=== PATIENT | female | born 1990 | race Caucasian/White ===

== ENCOUNTER 2021-01-30 18:05 | Emergency (ER) | payer SELFPAY ==
[~2021-01-30] VITALS: Ht 149.9 cm; Wt 94.1 kg
[2021-01-30] MEDS ORDERED: NEXP1IMP SC (18:19)
[2021-01-30 21:49] VITALS: BP 156/96
== END 2021-01-30 22:49 | disposition left against medical advice (07) ==
LOC: M ED 18:05
DX: Z53.21 Procedure and treatment not carried out due to patient leaving prior to being seen by health care provider (principal)

== ENCOUNTER 2021-02-14 14:03 | Emergency (ER) | payer OTHER, SELFPAY ==
[~2021-02-14] VITALS: Ht 149.9 cm; Wt 98.1 kg
[~2021-02-14 14:03] MED LIST: NEXP1IMP SC
[2021-02-14] MEDS ORDERED: nebulizer (14:19)
[2021-02-14] MEDS ORDERED: PROAAER10 INH (14:19)
[2021-02-14] MEDS ORDERED: BUDE10.7 IH (14:19)
--- NOTE | 2021-02-14 15:11 | REP ---
INDICATION: DYSPNEA/COUGH. COMPARISON: None. TECHNIQUE: Portable FINDINGS: The technique utilized in obtaining the radiograph has magnified the cardiac silhouette and accentuated the interstitial markings. The superior mediastinal structures are midline. The cardiac silhouette is unremarkable in size, shape, and position. The diaphragmatic surfaces of the lungs are regular, and the costophrenic angles are clear. The pulmonary chino are clear. The imaged osseous structures are intact. IMPRESSION: There is no acute cardiopulmonary disease. <Electronically signed by Aris Peace > 02/14/21 [id number]
[2021-02-14 15:22] LABS: BASO % 0.3 % (0.0-1.0); EOS % 0.3 % (0.0-3.0); HEMOGLOBIN 11.9 g/dl (12.0-15.5); LYMPH # 2.2 10^3/uL (1.5-5.0); LYMPH % 17.3 % (24.0-44.0); MEAN CORPUSCULAR HEMOGLOBIN 25.4 pg (27.0-33.0); MEAN CORPUSCULAR HGB CONC 31.3 g/dl (32.0-36.5); MONO # 1.1 10^3/uL (0.0-0.8); MONO % 8.5 % (2.0-8.0); NEUTROPHILS # 9.1 10^3/uL (1.5-8.5); NEUTROPHILS % 73.1 % (36.0-66.0); PLATELET COUNT, AUTOMATED 315 10^3/uL (150-450); RED BLOOD COUNT 4.69 10^6/uL (4.00-5.40); WHITE BLOOD COUNT 12.5 10^3/uL (4.0-10.0)
[2021-02-14 15:47] LABS: ALBUMIN 3.3 GM/DL (3.2-5.2); ALT/SGPT 19 U/L (12-78); BILIRUBIN,DIRECT < 0.1 MG/DL (0.0-0.2); BILIRUBIN,TOTAL 0.2 MG/DL (0.2-1.0); BLOOD UREA NITROGEN 7 MG/DL (7-18); CALCIUM LEVEL 8.9 MG/DL (8.5-10.1); CARBON DIOXIDE LEVEL 29 MEQ/L (21-32); CHLORIDE LEVEL 107 MEQ/L (98-107); CK-MB VALUE MASS < 1.0 NG/ML (<3.6); CPK CREATINE PHOSPHOKINASE 65 U/L (26-192); CREATININE FOR GFR 0.68 MG/DL (0.55-1.30); GLOMERULAR FILTRATION RATE > 60.0 (>60); GLUCOSE, FASTING 84 MG/DL (70-100); MB/CK RELATIVE INDEX 1.54 (< OR =4); POTASSIUM SERUM 3.8 MEQ/L (3.5-5.1); SODIUM LEVEL 140 MEQ/L (136-145); TOTAL PROTEIN 7.1 GM/DL (6.4-8.2); TROPONIN I < 0.02 NG/ML (< 0.10)
[2021-02-14] MEDS ORDERED: COMBIVENT RESPIMAT 100-20MCG INHALER 4GM INH ONE (15:50)
[2021-02-14] MEDS ORDERED: methylPREDNISolone 125MG 2ML VIAL IV ONE (15:50)
[2021-02-14] MEDS ORDERED: predniSONE 20 MG TAB PO ONE (17:20)
[2021-02-14 17:45] VITALS: BP 128/66
[2021-02-14] MEDS ORDERED: AZIT-12 PO (18:04)
[2021-02-14] MEDS ORDERED: PRED20TA PO (18:05)
--- NOTE | 2021-02-14 20:33 | ECGEPIP ---
[facility] - ED Test Date: 2021-02-14 Pat Name: ZHEN CASTLE Department: Room: - Gender: Female Ergonomic Specialist: sara : 1990 Requested By: AUTUMN Rogel Order Number: [id number] Reading MD: Chrissy Smallwood Measurements Intervals Gleason Rate: 100 P: 29 CA: 132 QRS: -26 QRSD: 78 T: 24 QT: 340 QTc: 438 Interpretive Statements Normal sinus rhythm Minimal voltage criteria for LVH, may be normal variant ( R in aVL ) NSTTW abnormalities No prior Electronically Signed on 02-14-2021 20:32:47 EDT by Chrissy Smallwood
== END 2021-02-14 18:23 | disposition home or self-care (01) ==
LOC: M ED 14:03
DX: J45.901 Unspecified asthma with (acute) exacerbation (principal); R32 Unspecified urinary incontinence; F84.0 Autistic disorder; F17.200 Nicotine dependence, unspecified, uncomplicated; Z88.8 Allergy status to other drugs, medicaments and biological substances; Z79.899 Other long term (current) drug therapy

== ENCOUNTER 2021-02-24 16:48 | Inpatient (IN) | payer OTHER ==
[~2021-02-24] VITALS: Ht 147.3 cm; Wt 97.9 kg
[~2021-02-24 16:48] MED LIST changes: +AZIT-12 PO; +BUDE10.7 IH; +PRED20TA PO; +PROAAER10 INH; +nebulizer
[2021-02-24] MEDS ORDERED: methylPREDNISolone 125MG 2ML VIAL IV ONE (17:10)
[2021-02-24] MEDS ORDERED: COMBIVENT RESPIMAT 100-20MCG INHALER 4GM INH ONE (17:10)
[2021-02-24 17:37] LABS: ABG BASE EXCESS -0.3 (-2.0-2.0); ABG HCO3 22.5 MEQ/L (22.0-26.0); ABG O2 SATURATION 99.5 % (95.0-99.0); ABG PARTIAL PRESSURE CO2 31.2 mmHg (35.0-45.0); ABG PARTIAL PRESSURE O2 185.5 mmHg (75.0-100.0); ABG STANDARD HCO3 24.3 MEQ/L (22.0-26.0); ABG TOTAL CO2 23.5 MEQ/L (22.0-29.0); ABG pH (ARTERIAL) 7.476 UNITS (7.350-7.450)
[2021-02-24 17:43] LABS: BASO # 0.1 10^3/uL (0.0-0.2); BASO % 0.3 % (0.0-1.0); EOS # 0.1 10^3/uL (0.0-0.5); EOS % 0.6 % (0.0-3.0); HEMATOCRIT 37.3 % (36.0-47.0); HEMOGLOBIN 11.7 g/dl (12.0-15.5); LYMPH # 2.8 10^3/uL (1.5-5.0); LYMPH % 19.2 % (24.0-44.0); MEAN CORPUSCULAR HEMOGLOBIN 25.5 pg (27.0-33.0); MEAN CORPUSCULAR HGB CONC 31.4 g/dl (32.0-36.5); MEAN CORPUSCULAR VOLUME 81.4 fl (80.0-96.0); MONO # 1.1 10^3/uL (0.0-0.8); MONO % 7.4 % (2.0-8.0); NEUTROPHILS # 10.3 10^3/uL (1.5-8.5); NEUTROPHILS % 72.1 % (36.0-66.0); PLATELET COUNT, AUTOMATED 325 10^3/uL (150-450); RED BLOOD COUNT 4.58 10^6/uL (4.00-5.40); WHITE BLOOD COUNT 14.3 10^3/uL (4.0-10.0)
[2021-02-24 18:05] LABS: INR 0.92; PROTHROMBIN TIME 12.6 SECONDS (12.5-14.3)
[2021-02-24 18:06] LABS: PARTIAL THROMBOPLASTIN TIME 30.9 SECONDS (24.2-38.5)
[2021-02-24 18:15] LABS: ALBUMIN 3.2 GM/DL (3.2-5.2); ALT/SGPT 22 U/L (12-78); BILIRUBIN,DIRECT < 0.1 MG/DL (0.0-0.2); BILIRUBIN,TOTAL 0.2 MG/DL (0.2-1.0); BLOOD UREA NITROGEN 7 MG/DL (7-18); CALCIUM LEVEL 8.8 MG/DL (8.5-10.1); CARBON DIOXIDE LEVEL 27 MEQ/L (21-32); CHLORIDE LEVEL 107 MEQ/L (98-107); CK-MB VALUE MASS < 1.0 NG/ML (<3.6); CPK CREATINE PHOSPHOKINASE 82 U/L (26-192); CREATININE FOR GFR 0.76 MG/DL (0.55-1.30); GLOMERULAR FILTRATION RATE > 60.0 (>60); GLUCOSE, FASTING 78 MG/DL (70-100); MB/CK RELATIVE INDEX 1.22 (< OR =4); NT-PRO BNP 38 PG/ML (<125); POTASSIUM SERUM 3.7 MEQ/L (3.5-5.1); SODIUM LEVEL 141 MEQ/L (136-145); TOTAL PROTEIN 6.7 GM/DL (6.4-8.2); TROPONIN I < 0.02 NG/ML (< 0.10)
[2021-02-24] MEDS ORDERED: ISOVUE-370 76% 100ML VIAL As Ordered ONE (18:24)
[2021-02-24] MEDS ORDERED: IPRATROPIUM 0.5MG/ALBUTEROL 2.5MG INH SOL UD 3ML (DUONEB) NEB ONE ×2 (18:50→20:10)
[2021-02-24] MEDS ORDERED: GABA-282 PO (20:27)
[2021-02-24] MEDS ORDERED: PRAZ2CAP40 PO (20:27)
[2021-02-24] MEDS ORDERED: TRAZ-257 PO (20:27)
[2021-02-24] MEDS ORDERED: PRAZ2CAP PO (20:27)
[2021-02-24] MEDS ORDERED: RISP3TAB20 PO (20:27)
[2021-02-24] MEDS ORDERED: MAG SULF 1GM/100ML (MAG RUN) 1 GM in IV 1 EA IV ONE (20:55)
[2021-02-24] MEDS ORDERED: PRAZOSIN 1 MG CAP PO SCH (21:00)
[2021-02-24] MEDS ORDERED: traZODone 100 MG TAB PO SCH (21:00)
[2021-02-24] MEDS ORDERED: CEPACOL LOZENGE PO PRN (21:05)
[2021-02-24] MEDS ORDERED: ACETAMINOPHEN 650MG ER TAB (TYLENOL ARTHRITIS) PO PRN (21:05)
[2021-02-24] MEDS ORDERED: IBUPROFEN 600MG TAB PO PRN (21:05)
[2021-02-24] MEDS ORDERED: ALBUTEROL SULFATE 2.5 MG/0.5 ML INH NEB SOLN NEB PRN (21:25)
--- NOTE | 2021-02-24 21:27 | HPEPDOC ---
[facility] Medical History & Physical Date of Admission February 24, 2021 Date of Service: February 24, 2021 Attending Physician: BROOKE ROLLINS MD History and Physical CHIEF COMPLAINT: cough/hemoptysis HISTORY OF PRESENT ILLNESS: Kyra Garcia is a 30 year old female who presented to the ED with ongoing cough and shortness of breath. She reports presenting today due to new hemoptysis with streaks of red blood in the sputum and one blood clot, approximately 1 hour prior to reporting to the ED. She denies prior his tory of hemoptysis. She states she has been struggling with her asthma for the past 1 month. She was seen in the ED a couple of weeks ago and diagnosed with an asthma exacerbation. However, her symptoms have not improved since that visit. She recently moved to the area to live with her mother and has not yet established care with a PCP or business systems architect. She was seen by pulmonary back in [place] for her asthma and states she was hospitalized multiple times with pneumonia. She also notes severe allergies, especially to dust mites, and states she was told she might benefit from allergy shots but has not pursued that yet. Patient's mother is at bedside and provides some of the history. PAST MEDICAL HISTORY: Asthma Prior hospitalizations for pneumonia Allergies Fibromyalgia Class 3 obesity Psych disorder PAST SURGICAL HISTORY: Bladder surgery x2 SOCIAL HISTORY: Smokes 5 cigarettes per day and vapes tobacco as well. Uses marijuana tinctures No alcohol. No other illicit substances. FAMILY HISTORY: Noncontributory ALLERGIES: Please see below. REVIEW OF SYSTEMS: CONSTITUTIONAL: Denies fevers, chills, night sweats, fatigue, unexpected change in weight. HEENT: Denies change in vision, change in hearing. CARDIOVASCULAR: Denies palpitations, lightheadedness. RESPIRATORY: Per HPI GASTROINTESTINAL: Denies nausea, vomiting, abdominal pain, diarrhea, constipation, blood in stool. GENITOURINARY: Denies dysuria, urinary frequency, urinary urgency. SKIN: Denies rash, lesions. MUSCULOSKELETAL: Denies joint pain or muscle aches. NEUROLOGICAL: Denies headache, dizziness, weakness. PSYCHIATRIC: Denies change in mood. HOME MEDICATIONS: Please see below. PHYSICAL EXAMINATION: VITAL SIGNS: See below GENERAL: Alert, comfortable, in no acute distress HEENT: Normocephalic, atraumatic, sclera anicteric, moist mucous membranes NECK: Supple, trachea midline, no lymphadenopathy CARDIOVASCULAR: Tachycardic with regular rhythm, normal S1 and S2. No murmurs, rubs, or gallops RESPIRATORY: Diffuse expiratory wheezing noted. ABDOMEN: Obese, soft, nontender, nondistended, bowel sounds present. EXTREMITIES: No cyanosis or edema. Pulses 2+/4 in bilateral upper and lower extremities SKIN: [place], warm, dry NEUROLOGIC: Alert and oriented x3 to person, place and time. No focal deficits appreciated PSYCHIATRIC: Mood and affect appropriate LABORATORY DATA: See below. IMAGING: - CTA chest, report pending. MICROBIOLOGY: Please see below. ASSESSMENT: 30 year old female with PMHX of asthma, allergies, fibromyalgia, and psychiatric disorder 1 month intermittent cough and shortness of breath and 1 hour of hemoptysis, admitted for management of asthma exacerbation PLAN: # Acute exacerbation of asthma - continue home inhaler (substituted based on hospital formulary) - give one dose of IV magnesium - s/p IV solumedrol 125mg. continue oral prednisone 40 mg daily. - Duonebs q6h scheduled with prn albuterol nebs # SIRS criteria - 3/4 criteria with tachycardia, tachypnea, and elevated WBC. Likely 2/2 asthma exacerbation. - No evidence of current infection. f/u CTA report - check blood cultures and lactic acid level # Hemoptysis - small volume prior to arrival at ED. Monitor for further blood in sputum. - Hg just below normal range. trend H/H daily. # Fibromyalgia - pain control with ibuprofen and acetaminophen. # Psychiatric disorder - unsure of diagnosis - continue Risperdal, trazodone, gabapentin, prazosin #Class 3 obesity -complicates care DVT prophylaxis: sc lovenox Disposition: home after at least 2 midnight's stay Vital Signs Vital Signs Date Time Temp Pulse Resp B/P (MAP) Pulse Ox O2 Delivery O2 Flow Rate FiO2 02/24/21 21:03 103 96 02/24/21 21:00 16 141/77 (98) 02/24/21 16:49 98.0 Room Air Laboratory Data Labs 24H Laboratory Tests 2 02/24/21 17:08: Immature Granulocyte % (Auto) 0.4, Neutrophils (%) (Auto) 72.1H, Lymphocytes (%) (Auto) 19.2L, Monocytes (%) (Auto) 7.4, Eosinophils (%) (Auto) 0.6, Basophils (%) (Auto) 0.3, Neutrophils # (Auto) 10.3H, Lymphocytes # (Auto) 2.8, Monocytes # (Auto) 1.1H, Eosinophils # (Auto) 0.1, Basophils # (Auto) 0.1, Nucleated Red Blood Cells % (auto) 0.0, Prothrombin Time 12.6, Prothromb Time International Ratio 0.92, Activated Partial Thromboplast Time 30.9, Blood Gas Bicarbonate Andrews dard 24.3, Arterial Blood pH 7.476H, Arterial Blood Partial Pressure CO2 31.2L, Arterial Blood Partial Pressure O2 185.5H, Arterial Blood Total CO2 23.5, Arterial Blood HCO3 22.5, Arterial Blood Base Excess -0.3, Arterial Blood Oxygen Saturation 99.5H, Anion Gap 7L, Glomerular Filtration Rate > 60.0, Calcium Level 8.8, Total Bilirubin 0.2, Direct Bilirubin < 0.1, Aspartate Amino Transf (AST/SGOT) 8, Alanine Aminotransferase (ALT/SGPT) 22, Alkaline Phosphatase 78, Total Creatine Kinase 82, Creatine Kinase MB < 1.0, Creatine Kinase MB Relative Index 1.22, Troponin I < 0.02, VL-Kjc-Y-Type Natriuretic Peptide 38, Total Protein 6.7, Albumin 3.2, Albumin/Globulin Ratio 0.9L, Thyroid Stimulating Ho rmone (TSH) 1.150 CBC/BMP Laboratory Tests 02/24/21 17:08 Microbiology Microbiology 02/24/21 Respiratory Virus Panel (PCR) ([facility]) - Final, Complete Home Medications Scheduled Gabapentin (Gabapentin) 300 Mg Capsule, 300 MG PO TID Prazosin HCl (Prazosin HCl) 2 Mg Capsule, 4 MG PO QHS Prazosin Hcl (Prazosin HCl) 2 Mg Capsule, 2 MG PO QAM Risperidone (Risperdal) 3 Mg Tablet, 3 MG PO BID Trazodone HCl (Trazodone HCl) 100 Mg Tablet, 200 MG PO QHS Scheduled PRN Albuterol Sulfate (Proair Hfa) 8.5 Gm Hfa.aer.ad, 2 PUFF INH Q4-6HP PRN for wheezing Miscellaneous Medications Budesonide/Glycopyr/Formoterol (Breztri Aerosphere Inhaler) 160 Mcg-9 Mcg-4.8 Mcg/Actuation Hfa.aer.ad, 10.7 GM IH Etonogestrel (Nexplanon) 68 Mg Implant, 68 MG SC Allergies Coded Allergies: haloperidol (Verified Allergy, Unknown, 01/30/21) lorazepam (Verified Allergy, Unknown, 01/30/21) GME ATTESTATION GME ATTESTATION My faculty preceptor for this patient encounter was physically present during the encounter and was fully available. All aspects of the patient interview, examination, medical decision making process, and medical care plan development were reviewed and approved by the faculty preceptor. The faculty preceptor is aware and concurs with the plan as stated in the body of this note and will attest to such by his/her cosignature. ATTENDING NOTE time of service 855pm Ms. Garcia is a 30 yr old w Asthma, fibromyalgia and obesity who is admitted for acute Asthma. rest per 's H&P PADDY RG D.O. February 24, 2021 21:27 BROOKE ROLLINS MD February 25, 2021 02:54
[2021-02-24 22:34] VITALS: BP 118/73
[2021-02-24 22:47] VITALS: O2SAT 95
[2021-02-24] MEDS: GABAPENTIN 300 MG CAP PO SCH (22:53)
[2021-02-24] MEDS: risperiDONE 3 MG TAB PO SCH (22:54)
[2021-02-25 06:16] LABS: BASO % 0.1 % (0.0-1.0); HEMATOCRIT 37.2 % (36.0-47.0); HEMOGLOBIN 11.7 g/dl (12.0-15.5); LYMPH # 0.8 10^3/uL (1.5-5.0); LYMPH % 6.1 % (24.0-44.0); MEAN CORPUSCULAR HEMOGLOBIN 25.4 pg (27.0-33.0); MEAN CORPUSCULAR HGB CONC 31.5 g/dl (32.0-36.5); MEAN CORPUSCULAR VOLUME 80.7 fl (80.0-96.0); MONO # 0.1 10^3/uL (0.0-0.8); MONO % 0.7 % (2.0-8.0); NEUTROPHILS # 12.2 10^3/uL (1.5-8.5); NEUTROPHILS % 92.3 % (36.0-66.0); PLATELET COUNT, AUTOMATED 326 10^3/uL (150-450); RED BLOOD COUNT 4.61 10^6/uL (4.00-5.40); WHITE BLOOD COUNT 13.2 10^3/uL (4.0-10.0)
[2021-02-25 06:20] VITALS: BP 121/66; O2SAT 96
[2021-02-25 06:38] LABS: HEMOGLOBIN A1c 5.8 %
[2021-02-25 06:47] LABS: BLOOD UREA NITROGEN 8 MG/DL (7-18); CALCIUM LEVEL 9.3 MG/DL (8.5-10.1); CARBON DIOXIDE LEVEL 25 MEQ/L (21-32); CHLORIDE LEVEL 108 MEQ/L (98-107); CREATININE FOR GFR 0.59 MG/DL (0.55-1.30); GLOMERULAR FILTRATION RATE > 60.0 (>60); GLUCOSE, FASTING 184 MG/DL (70-100); MAGNESIUM LEVEL 2.7 MG/DL (1.8-2.4); POTASSIUM SERUM 4.6 MEQ/L (3.5-5.1); SODIUM LEVEL 139 MEQ/L (136-145)
--- NOTE | 2021-02-25 07:56 | ECGEPIP ---
[facility] - ED Test Date: 2021-02-24 Pat Name: ZHEN CASTLE Department: Room: - Gender: Female Furnace Attendant: JOE : 1990 Requested By: AUTUMN Rogel Order Number: [id number] Reading MD: Chrissy Smallwood Measurements Intervals Apollo Rate: 88 P: 39 WI: 134 QRS: -22 QRSD: 78 T: 17 QT: 352 QTc: 425 Interpretive Statements Normal sinus rhythm NSTTW abnormalities decreased rate 02/14/21 Electronically Signed on 02-25-2021 7:55:55 EDT by Chrissy Smallwood
[2021-02-25] MEDS ORDERED: SYMBICORT 160/4.5MCG INHALER 6GM INH SCH (08:00)
[2021-02-25] MEDS: IPRATROPIUM 0.5MG/ALBUTEROL 2.5MG INH SOL UD 3ML (DUONEB) NEB SCH ×2 (08:00→09:17)
[2021-02-25 08:54] VITALS: BP 121/66
[2021-02-25] MEDS: predniSONE 20 MG TAB PO SCH ×2 (08:54→09:00)
[2021-02-25] MEDS: risperiDONE 3 MG TAB PO SCH (08:54)
[2021-02-25] MEDS: GABAPENTIN 300 MG CAP PO SCH (08:54)
[2021-02-25] MEDS ORDERED: ENOXAPARIN 40MG/0.4ML SYRINGE (J1650 PER 10MG) SC SCH (09:00)
[2021-02-25] MEDS ORDERED: PRAZOSIN 1 MG CAP PO SCH (09:00)
[2021-02-25] MEDS ORDERED: IBUP-1022 PO (10:24)
[2021-02-25] MEDS ORDERED: PROAAER10 INH (10:24)
[2021-02-25] MEDS ORDERED: methylPREDNISolone 125MG 2ML VIAL IV ONE (10:30)
--- NOTE | 2021-02-25 15:52 | DS.PDOC ---
Discharge Summary General Date of Admission February 24, 2021 at 20:51 Date of Discharge 02/25/2021 Discharge Summary PRIMARY CARE PHYSICIAN: Has not established with primary care physician in this area, but she does have an appointment with a [facility] provider in April with whom she will establish as a new patient, whose name she cannot remember at this time. ATTENDING AT TIME OF DISCHARGE: Dr. Noah Bunn, DO DISCHARGE DIAGNOS(E)S: Acute exacerbation of asthma Meats sirs criteria Minimal amount of hemoptysis prior to admission Fibromyalgia Unknown psychiatric disorder Class III obesity HPI & HOSPITAL COURSE: The patient was admitted for acute exacerbation of asthma. She was given a dose of Solu-Medrol 125 mg in the ED, and is started on inhalers and nebulizers. The patient stabilized fairly quickly, and this morning she is breathing quite well. She did not require oxygen at all throughout the night. Her wheezing has essentially completely resolved. She is feeling significantly better this morning and appears stable and safe for discharge at this time. PHYSICAL EXAMINATION ON DISCHARGE: GENERAL: Awake, alert, oriented 3. She is in no acute distress. CARDIOVASCULAR EXAMINATION: Regular rate and rhythm, with no rubs, gallops, or murmur. RESPIRATORY EXAMINATION: Clear to auscultation bilaterally with no wheezes, rales, or rhonchi. ABDOMINAL EXAMINATION: Soft, nontender, nondistended. Bowel sounds present. EXTREMITIES: No clubbing or edema noted. 2+ pulses in the radial bilaterally. DISPOSITION: Home DISCHARGE INSTRUCTIONS: Recommend that she follow-up with her primary care physician at her previously scheduled appointment, if she is having any issues is recommended that she call and move that date up closer. Diet as tolerated. Activity as tolerated. If symptoms return, or if you experience worsening of your symptoms, please call your doctor or return to the emergency department. DISCHARGE MEDICATIONS: -She reports that she has no adverse reaction to prednisone, that it will put her into a "rage fit", therefore she will be given a dose of Solu-Medrol prior to discharge, as this does not seem to affect her. -She does need a refill on her albuterol inhaler, this will be sent in -She also is requesting some prescription strength ibuprofen, as this helps with the discomfort under her ribs from the prior coughing and wheezing, a short prescription for this has also been sent in. -Otherwise, she seems to have plenty of all of her other medications, and no changes were made in any of her other home medications Vital Signs/I&Os Vital Signs Date Time Temp Pulse Resp B/P (MAP) Pulse Ox O2 Delivery O2 Flow Rate FiO2 02/25/21 08:54 121/66 02/25/21 06:20 96 Room Air 02/25/21 06:20 97.3 74 18 I&O- Last 24 Hours up to 6 AM 02/25/21 06:00 Intake Total 600 ml Output Total 800 ml Balance -200 ml Laboratory Data Labs 24H Laboratory Tests 2 02/24/21 17:08: Immature Granulocyte % (Auto) 0.4, Neutrophils (%) (Auto) 72.1H, Lymphocytes (%) (Auto) 19.2L, Monocytes (%) (Auto) 7.4, Eosinophils (%) (Auto) 0.6, Basophils (%) (Auto) 0.3, Neutrophils # (Auto) 10.3H, Lymphocytes # (Auto) 2.8, Monocytes # (Auto) 1.1H, Eosinophils # (Auto) 0.1, Basophils # (Auto) 0.1, Nucleated Red Blood Cells % (auto) 0.0, Prothrombin Time 12.6, Prothromb Time International Ratio 0.92, Activated Partial Thromboplast Time 30.9, Blood Gas Bicarbonate Standard 24.3, Arterial Blood pH 7.476H, Arterial Blood Partial Pressure CO2 31.2L, Arterial Blood Partial Pressure O2 185.5H, Arterial Blood Total CO2 23.5, Arterial Blood HCO3 22.5, Arterial Blood Base Excess -0.3, Arterial Blood Oxygen Saturation 99.5H, Anion Gap 7L, Glomerular Filtration Rate > 60.0, Calcium Level 8.8, Total Bilirubin 0.2, Direct Bilirubin < 0.1, Aspartate Amino Transf (AST/SGOT) 8, Alanine Aminotransferase (ALT/SGPT) 22, Alkaline Phosphatase 78, Total Creatine Kinase 82, Creatine Kinase MB < 1.0, Creatine Kinase MB Relative Index 1.22, Troponin I < 0.02, IB-Awj-M-Type Natriuretic Peptide 38, Total Protein 6.7, Albumin 3.2, Albumin/Globulin Ratio 0.9L, Thyroid Stimulating Hormone (TSH) 1.150 02/24/21 21:29: Lactic Acid Level 1.7 02/25/21 05:52: Immature Granulocyte % (Auto) 0.8, Neutrophils (%) (Auto) 92.3H, Lymphocytes (%) (Auto) 6.1L, Monocytes (%) (Auto) 0.7L, Eosinophils (%) (Auto) 0.0, Basophils (%) (Auto) 0.1, Neutrophils # (Auto) 12.2H, Lymphocytes # (Auto) 0.8L, Monocytes # (Auto) 0.1, Eosinophils # (Auto) 0.0, Basophils # (Auto) 0.0, Nucleated Red Blood Cells % (auto) 0.0, Anion Gap 6L, Glomerular Filtration Rate > 60.0, Calcium Level 9.3, Estimated Mean Plasma Glucose 120H, Hemoglobin A1c 5.8, Magnesium Level 2.7H CBC/BMP Laboratory Tests 02/24/21 17:08 02/25/21 05:52 Microbiology Microbiology 02/24/21 Blood Culture, Received Pending 02/24/21 Respiratory Virus Panel (PCR) ([facility]) - Final, Complete Discharge Medications Scheduled Gabapentin (Gabapentin) 300 Mg Capsule, 300 MG PO TID, (Reported) Prazosin HCl (Prazosin HCl) 2 Mg Capsule, 4 MG PO QHS, (Reported) Prazosin Hcl (Prazosin HCl) 2 Mg Capsule, 2 MG PO QAM, (Reported) Risperidone (Risperdal) 3 Mg Tablet, 3 MG PO BID, (Reported) Trazodone HCl (Trazodone HCl) 100 Mg Tablet, 200 MG PO QHS, (Reported) Scheduled PRN Albuterol Sulfate (Proair Hfa) 8.5 Gm Hfa.aer.ad, 2 PUFF INH Q4-6HP PRN for wheezing Ibuprofen (Ibuprofen) 600 Mg Tablet, 600 MG PO Q12HP PRN for MODERATE PAIN (PS 5-7) Miscellaneous Medications Budesonide/Glycopyr/Formoterol (Breztri Aerosphere Inhaler) 160 Mcg-9 Mcg-4.8 Mcg/Actuation Hfa.aer.ad, 10.7 GM IH, (Reported) Etonogestrel (Nexplanon) 68 Mg Implant, 68 MG SC, (Reported) Allergies Coded Allergies: haloperidol (Verified Allergy, Unknown, 01/30/21) lorazepam (Verified Allergy, Unknown, 01/30/21) NOAH BUNN DO February 25, 2021 15:52
--- NOTE | 2021-02-26 09:13 | REP ---
INDICATION: SOB hemoptysis. COMPARISON: None. TECHNIQUE: CT angiogram chest performed following the intravenous administration of 100 cc of Isovue 370. Sagittal and coronal reconstruction images are performed. FINDINGS: Lungs: There are mild diffuse ground-glass opacities throughout both lungs. Mediastinum: No adenopathy. Pulmonary arteries: No evidence of pulmonary embolism. Marilyn: No adenopathy. Axilla: No adenopathy. Pleura: No effusion. Heart: Not enlarged. Thoracic aorta: No aneurysm or dissection. Upper abdominal structures: Unremarkable. Visualized osseous structures: Unremarkable. IMPRESSION: No CT evidence of pulmonary embolism. Mild diffuse scattered ground-glass opacities bilaterally are nonspecific. Differential diagnosis would include pulmonary edema or inflammatory/infectious process. Preliminary report provided by [facility] at the time of the exam. <Electronically signed by Real Rosenberg > 02/26/21 [id number]
== END 2021-02-25 12:25 | disposition home or self-care (01) | DRG 720 ==
LOC: M ED 16:48 → M ED INP 20:51 → ENRESERV 21:12 → M MS5PR 22:30
PROVIDERS: ADMIT Internal Medicine; ATTEND Internal Medicine
DX: A41.9 Sepsis, unspecified organism (principal); K92.0 Hematemesis; J45.901 Unspecified asthma with (acute) exacerbation; M79.7 Fibromyalgia; F29 Unspecified psychosis not due to a substance or known physiological condition; E66.9 Obesity, unspecified; Z79.899 Other long term (current) drug therapy; Z88.8 Allergy status to other drugs, medicaments and biological substances; F17.210 Nicotine dependence, cigarettes, uncomplicated

== ENCOUNTER → 2021-03-20 | Outpatient (REF) | payer MEDICAID ==
[~2021-03-20] MED LIST changes: +GABA-282 PO; +IBUP-1022 PO; +PRAZ2CAP PO; +PRAZ2CAP40 PO; +RISP3TAB20 PO; +TRAZ-257 PO
[2021-03-20 15:21] LABS: BASO % 0.4 % (0.0-1.0); EOS # 0.1 10^3/uL (0.0-0.5); EOS % 0.4 % (0.0-3.0); HEMATOCRIT 35.1 % (36.0-47.0); HEMOGLOBIN 10.9 g/dl (12.0-15.5); LYMPH # 2.3 10^3/uL (1.5-5.0); LYMPH % 20.6 % (24.0-44.0); MEAN CORPUSCULAR HEMOGLOBIN 25.3 pg (27.0-33.0); MEAN CORPUSCULAR HGB CONC 31.1 g/dl (32.0-36.5); MEAN CORPUSCULAR VOLUME 81.4 fl (80.0-96.0); MONO # 0.8 10^3/uL (0.0-0.8); MONO % 6.7 % (2.0-8.0); NEUTROPHILS % 71.5 % (36.0-66.0); PLATELET COUNT, AUTOMATED 372 10^3/uL (150-450); RED BLOOD COUNT 4.31 10^6/uL (4.00-5.40); WHITE BLOOD COUNT 11.1 10^3/uL (4.0-10.0)
[2021-03-20 16:00] LABS: ALBUMIN 3.1 GM/DL (3.2-5.2); ALT/SGPT 21 U/L (12-78); BILIRUBIN,TOTAL 0.1 MG/DL (0.2-1.0); BLOOD UREA NITROGEN 5 MG/DL (7-18); CALCIUM LEVEL 8.7 MG/DL (8.5-10.1); CARBON DIOXIDE LEVEL 25 MEQ/L (21-32); CHLORIDE LEVEL 108 MEQ/L (98-107); CREATININE FOR GFR 0.69 MG/DL (0.55-1.30); GLOMERULAR FILTRATION RATE > 60.0 (>60); GLUCOSE, FASTING 74 MG/DL (70-100); POTASSIUM SERUM 4.1 MEQ/L (3.5-5.1); SODIUM LEVEL 139 MEQ/L (136-145); THYROID STIMULATING HORMONE 0.967 uIU/ML (0.358-3.740); TOTAL PROTEIN 6.6 GM/DL (6.4-8.2)
[2021-03-20 16:02] LABS: TOTAL 25(OH) VITAMIN D 24.2 NG/ML (30.0-100.0)
[2021-03-20 16:12] LABS: VITAMIN B12 LEVEL 592 PG/ML (247-911)
== END ==
LOC: M SFHCPLAZ 12:20
PROVIDERS: ATTEND Family Medicine
DX: R53.83 Other fatigue (principal)

== ENCOUNTER → 2021-03-23 | Outpatient (REF) | payer MEDICAID ==
[2021-03-23 15:43] LABS: PERCENT SATURATION 8.7 % (13.2-45.0)
== END ==
LOC: M PLALAB 12:19
PROVIDERS: ATTEND Family Medicine
DX: D64.9 Anemia, unspecified (principal)

== ENCOUNTER → 2021-03-28 | Outpatient (CLI) | payer MEDICAID ==
--- NOTE | 2021-03-28 12:54 | REPPI ---
INDICATION: R05 COUGH. COMPARISON: Portable exam 02/14/2021 FINDINGS: The superior mediastinal structures are midline. The cardiac silhouette is unremarkable in size, shape, and position. The diaphragmatic surfaces of the lungs are regular, and the costophrenic angles are clear. The pulmonary chino are clear. The imaged osseous structures are intact. IMPRESSION: There is no acute cardiopulmonary disease. <Electronically signed by Aris Peace > 03/28/21 [id number]
--- NOTE | 2021-03-28 14:02 | REPPI ---
INDICATION: M54.5 ACUTE MIDLINE LOW BACK PAIN WITHOUT SCIATICA. TECHNIQUE: Multiple views of the lumbosacral spine. FINDINGS: Multiple views of the lumbosacral spine show no acute fracture, dislocation, or subluxation. The intervertebral disc spaces are symmetric and well maintained. There is no spondylolysis or spondylolisthesis. The pedicles are intact bilaterally and there is no destructive osseous lesion. There is a curvilinear metallic radiodensity superimposed over the left ilium the distal tip of which is in the left hemipelvic region. IMPRESSION: Essentially unremarkable lumbosacral spine series. There is some form of stimulator device arising from the posterior the etiology of which is uncertain. <Electronically signed by Aris Peace > 03/28/21 [id number]
== END ==
LOC: M PLAIMG 11:21
PROVIDERS: ATTEND Family Medicine
DX: R05 Cough (principal); M54.5 Low back pain

== ENCOUNTER → 2021-03-28 | Outpatient (REF) | payer MEDICAID ==
[2021-03-28 14:31] LABS: BASO % 0.4 % (0.0-1.0); EOS # 0.1 10^3/uL (0.0-0.5); EOS % 0.7 % (0.0-3.0); HEMATOCRIT 35.5 % (36.0-47.0); LYMPH % 17.8 % (24.0-44.0); MEAN CORPUSCULAR HEMOGLOBIN 25.4 pg (27.0-33.0); MONO # 0.8 10^3/uL (0.0-0.8); MONO % 7.4 % (2.0-8.0); NEUTROPHILS # 8.2 10^3/uL (1.5-8.5); NEUTROPHILS % 73.2 % (36.0-66.0); PLATELET COUNT, AUTOMATED 345 10^3/uL (150-450); RED BLOOD COUNT 4.33 10^6/uL (4.00-5.40); WHITE BLOOD COUNT 11.2 10^3/uL (4.0-10.0)
== END ==
LOC: M SFHCPLAZ 11:21
PROVIDERS: ATTEND Family Medicine
DX: D50.9 Iron deficiency anemia, unspecified (principal); R05 Cough

== ENCOUNTER 2021-04-26 14:39 | Emergency (ER) | payer MEDICAID, OTHER ==
[~2021-04-26] VITALS: Ht 149.9 cm; Wt 100.0 kg
[2021-04-26] MEDS ORDERED: methocarbamoL 500 MG TAB PO ONE (16:50)
[2021-04-26] MEDS ORDERED: KETOROLAC 30 MG/ML 1ML VIAL IM ONE (17:00)
[2021-04-26] MEDS ORDERED: METH-1164 PO (17:10)
[2021-04-26 17:19] VITALS: BP 125/81
== END 2021-04-26 17:35 | disposition home or self-care (01) ==
LOC: M ED 14:39
DX: M54.5 Low back pain (principal); J45.909 Unspecified asthma, uncomplicated; J44.9 Chronic obstructive pulmonary disease, unspecified; F84.0 Autistic disorder; F41.9 Anxiety disorder, unspecified; F20.9 Schizophrenia, unspecified; R32 Unspecified urinary incontinence; F17.200 Nicotine dependence, unspecified, uncomplicated; Z88.8 Allergy status to other drugs, medicaments and biological substances; Z79.899 Other long term (current) drug therapy
CPT/HCPCS: 80047; 96372; 99283; J1885

== ENCOUNTER → 2021-05-25 | Outpatient (REF) | payer MEDICAID, OTHER ==
[~2021-05-25] MED LIST changes: +METH-1164 PO
== END ==
LOC: M SMT 13:03
PROVIDERS: ATTEND Specialist
DX: M79.7 Fibromyalgia (principal); Z53.9 Procedure and treatment not carried out, unspecified reason

== ENCOUNTER → 2021-05-25 | Outpatient (REF) | payer MEDICAID ==
[2021-05-25 18:19] LABS: BACTERIA, URINE AUTO 1+ (NEGATIVE); CALCIUM OXALATE CRYSTALS SMALL; MUCUS, URINE SMALL (NEGATIVE); RBC, URINE AUTO 6 /HPF (0-3); SQUAMOUS EPITHELIAL CELL UR AU 9 /HPF (0-6); WBC, URINE AUTO 2 /HPF (0-3)
== END ==
LOC: M SMT 16:49
PROVIDERS: ATTEND Specialist
DX: M79.7 Fibromyalgia (principal)

== ENCOUNTER → 2021-05-25 | Outpatient (REF) | payer MEDICAID | LOC: M SMT 15:46 | PROVIDERS: ATTEND Urology | DX: N76.0 Acute vaginitis (principal) ==

== ENCOUNTER → 2021-06-03 | Outpatient (CLI) | payer MEDICAID, OTHER ==
--- NOTE | 2021-06-04 09:54 | REP ---
INDICATION: SPRAIN OF ANTERIOR CRUCIATE LIGAMENT. Low back pain. Unbalanced gait. COMPARISON: 03/28/2021. TECHNIQUE: Multiple sequences obtained in the sagittal axial planes. FINDINGS: The vertebral bodies are normal in height and well aligned, with normal lumbar lordosis. No compression fracture is seen. The discs demonstrate normal signal without degeneration or loss in height. The conus is unremarkable. There is no evidence of significant disc bulging or herniation at any level. There is no significant spinal stenosis or neural foraminal narrowing at any level. In the posterior superficial lumbar soft tissues, centered at the midline, there is very mild scattered edema, likely passive. IMPRESSION: Essentially negative MRI lumbar spine. A preliminary report was provided by [facility] at the time of the exam. <Electronically signed by Real Rosenberg > 06/04/21 [id number]
== END ==
LOC: M RAD 05-20 14:12
PROVIDERS: ATTEND Family Medicine
DX: M79.18 Myalgia, other site (principal)

== ENCOUNTER 2021-06-21 13:52 | Emergency (ER) | payer MEDICAID, OTHER ==
[~2021-06-21] VITALS: Ht 175.3 cm; Wt 99.5 kg
[2021-06-21 13:53] VITALS: BP 115/76
[2021-06-21] MEDS ORDERED: benzatropine (14:02)
[2021-06-21] MEDS ORDERED: ABIL1TAB12 PO (14:02)
== END 2021-06-21 17:57 | disposition left against medical advice (07) ==
LOC: M ED 13:52
DX: Z53.21 Procedure and treatment not carried out due to patient leaving prior to being seen by health care provider (principal)

== ENCOUNTER → 2021-07-06 | Outpatient (CLI) | payer OTHER ==
[~2021-07-06] MED LIST changes: +ABIL1TAB12 PO; +benzatropine
--- NOTE | 2021-07-06 15:31 | REP ---
INDICATION: MIGRAINE INTRACTABLE. COMPARISON: None. TECHNIQUE: Axial and sagittal imaging planes are utilized for T1 and T2-weighted scans. Sequences include spin-echo, fast spin echo, FLAIR, and diffusion weighted sequences. FINDINGS: No bony calvarial lesion is seen. Craniocervical junction and upper cervical cord are normal in appearance. There is no MR evidence of significant paranasal sinus disease. No intraorbital abnormality is seen. The lateral, third, and fourth ventricles are normal in size and position. Rosenberg-white differentiation pattern is intact above and below the tentorium. There is no evidence of intracranial hemorrhage. No mass, infarction, extra-axial fluid collection or midline shift is seen. No abnormal white matter lesion is seen. IMPRESSION: Negative noncontrast brain MRI study. <Electronically signed by Alfonzo Lynch > 07/06/21 [id number]
== END ==
LOC: M PLARAD 11:01
PROVIDERS: ATTEND Psychiatry & Neurology Neurology
DX: G43.909 Migraine, unspecified, not intractable, without status migrainosus (principal)

== ENCOUNTER → 2021-07-23 | Outpatient (REF) | payer OTHER, MEDICAID | LOC: M SMT 16:46 | PROVIDERS: ATTEND Specialist | DX: N76.0 Acute vaginitis (principal) ==

== ENCOUNTER → 2021-08-23 | Outpatient (REF) | payer OTHER, MEDICAID ==
[2021-08-23 17:55] LABS: APPEARANCE, URINE CLOUDY (CLEAR); BACTERIA, URINE AUTO 2+ (NEGATIVE); BILIRUBIN, URINE AUTO NEGATIVE (NEGATIVE); BLOOD, URINE BLOOD NEGATIVE (NEGATIVE); COLOR, URINE AMBER (YELLOW); GLUCOSE, URINE (UA) AUTO NEGATIVE (NEGATIVE); KETONE, URINE AUTO NEGATIVE (NEGATIVE); LEUKOCYTE ESTERASE, URINE AUTO NEGATIVE (NEGATIVE); MUCUS, URINE SMALL (NEGATIVE); NITRITE, URINE AUTO POSITIVE (NEGATIVE); PROTEIN, URINE AUTO NEGATIVE (NEGATIVE); RBC, URINE AUTO 4 /HPF (0-3); SPECIFIC GRAVITY URINE AUTO 1.015 (1.002-1.035); SQUAMOUS EPITHELIAL CELL UR AU 22 /HPF (0-6); WBC, URINE AUTO 13 /HPF (0-3)
== END ==
LOC: M SMT 16:41
PROVIDERS: ATTEND Nurse Practitioner Women's Health
DX: R30.0 Dysuria (principal)

== ENCOUNTER → 2021-08-27 | Outpatient (CLI) | payer OTHER | LOC: M PLAIMG 10:35 | PROVIDERS: ATTEND Psychiatry & Neurology Neurology | DX: Z53.20 Procedure and treatment not carried out because of patient's decision for unspecified reasons (principal) ==

== ENCOUNTER → 2021-09-26 | Outpatient (CLI) | payer OTHER ==
--- NOTE | 2021-09-27 15:40 | SLEEPHOME ---
DATE: 09/25/2021 ORDERED BY: Huong Lopez Diagnostic home sleep testing was performed due to concern for the obstructive sleep apnea syndrome in this patient with a history of impaired cognition, mood disorders, and nonrestorative sleep with snoring. For testing, a NOX T3 respiratory monitoring device was used. Continuous record was made of pulse, oxygen saturation, air flow, chest and abdominal strain, and body position. There was 11 hours and 59 minutes of data reviewed. There was 8 hours and 34 minutes marked as time in bed. During the interval marked time in bed, there were 49 respiratory events identified of 10 seconds in duration or greater for a respiratory event index of 5.7. The events were primarily obstructive. Eight mixed and central apneas were noted. Baseline pulse rate 90. Pulse rate ranged 24-197. Baseline saturation 90%. Saturations fell to 78%. Testing was performed in both the supine and nonsupine positions. IMPRESSION: Abnormal home sleep testing with repetitive respiratory events and oxygen desaturations to 78% with a respiratory event index of 5.7 is consistent with the obstructive sleep apnea syndrome. RECOMMENDATION: The patient should be encouraged to undergo formal sleep evaluation.
== END ==
LOC: M SLEEP HO 09-03 13:38
PROVIDERS: ATTEND Nurse Practitioner Adult Health
DX: G47.30 Sleep apnea, unspecified (principal)

== ENCOUNTER 2021-12-30 23:57 | Inpatient (IN) | payer OTHER ==
[~2021-12-30] VITALS: Ht 149.9 cm; Wt 96.0 kg
[2021-12-31 00:43] LABS: HEMATOCRIT 38.8 % (36.0-47.0); HEMOGLOBIN 12.1 g/dl (12.0-15.5); MEAN CORPUSCULAR HEMOGLOBIN 26.3 pg (27.0-33.0); MEAN CORPUSCULAR HGB CONC 31.2 g/dl (32.0-36.5); MEAN CORPUSCULAR VOLUME 84.3 fl (80.0-96.0); PLATELET COUNT, AUTOMATED 331 10^3/uL (150-450); WHITE BLOOD COUNT 12.8 10^3/uL (4.0-10.0)
[2021-12-31 00:53] LABS: AMPHETAMINES LEVEL URINE NEGATIVE (NEGATIVE); BARBITURATES URINE NEGATIVE (NEGATIVE); BENZODIAZEPINES URINE NEGATIVE (NEGATIVE); CANNABINOIDS URINE NEGATIVE (NEGATIVE); COCAINE METABOLITE URINE NEGATIVE (NEGATIVE); METHADONE URINE NEGATIVE (NEGATIVE); OPIATES URINE NEGATIVE (NEGATIVE); PHENCYCLIDINE URINE NEGATIVE (NEGATIVE)
[2021-12-31] MEDS ORDERED: PROP10TA56 PO (01:01)
[2021-12-31] MEDS ORDERED: PRAZ1CAP PO (01:01)
[2021-12-31] MEDS ORDERED: CETI5SOL3 PO (01:01)
[2021-12-31] MEDS ORDERED: TRAZ-252 PO (01:01)
[2021-12-31] MEDS ORDERED: BENZ-52 PO (01:01)
[2021-12-31] MEDS ORDERED: TIZA2TA PO (01:01)
[2021-12-31] MEDS ORDERED: OXCA600T8 PO (01:01)
[2021-12-31] MEDS ORDERED: DULO1CAP5 PO (01:01)
[2021-12-31] MEDS ORDERED: FERR325T3 PO (01:01)
[2021-12-31] MEDS ORDERED: PHEN1TAB73 PO (01:01)
[2021-12-31] MEDS ORDERED: ONDA4TAB6 PO (01:01)
[2021-12-31 01:12] LABS: HCG, SERUM QUALITATIVE NEGATIVE (NEGATIVE)
[2021-12-31 01:15] LABS: RSV AMPLIFICATION NEGATIVE (NEGATIVE)
[2021-12-31] MEDS ORDERED: ARIP1TAB43 PO (01:20)
[2021-12-31 01:21] LABS: ACETAMINOPHEN LEVEL < 2.0 UG/ML (10.0-30.0); ALBUMIN 3.3 GM/DL (3.2-5.2); ALT/SGPT 26 U/L (12-78); BILIRUBIN,DIRECT < 0.1 MG/DL (0.0-0.2); BILIRUBIN,TOTAL 0.2 MG/DL (0.2-1.0); BLOOD UREA NITROGEN 12 MG/DL (7-18); CALCIUM LEVEL 8.4 MG/DL (8.5-10.1); CARBON DIOXIDE LEVEL 27 MEQ/L (21-32); CHLORIDE LEVEL 107 MEQ/L (98-107); CREATININE FOR GFR 0.82 MG/DL (0.55-1.30); ETHYL ALCOHOL (ETHANOL) < 0.003 % (0.000-0.010); GLOMERULAR FILTRATION RATE > 60.0 (>60); GLUCOSE, FASTING 89 MG/DL (70-100); SALICYLATE LEVEL < 1.7 MG/DL (5.0-30.0); SODIUM LEVEL 139 MEQ/L (136-145); TOTAL PROTEIN 6.6 GM/DL (6.4-8.2)
[2021-12-31] MEDS ORDERED: med rec comment (01:22)
[2021-12-31] MEDS ORDERED: MONT10TA97 PO (01:47)
[2021-12-31] MEDS ORDERED: ONDA-83 PO (01:47)
[2021-12-31] MEDS ORDERED: HOME MED LIST COMPLETE! XX SCH (01:50)
[2021-12-31] MEDS ORDERED: CETIRIZINE (ZyrTEC) 10 MG TAB PO SCH (09:00)
[2021-12-31] MEDS ORDERED: GABAPENTIN 300 MG CAP PO SCH (09:00)
[2021-12-31] MEDS ORDERED: DULoxetine 30MG CAPSULE (CYMBALTA) PO SCH (09:00)
[2021-12-31] MEDS ORDERED: BENZTROPINE 1 MG TAB PO SCH (09:00)
[2021-12-31] MEDS ORDERED: FERROUS SULFATE 325MG TAB PO SCH (09:00)
[2021-12-31] MEDS ORDERED: OXcarbazepine 300 MG TAB PO SCH (09:00)
[2021-12-31] MEDS ORDERED: ONDANSETRON 4MG TAB PO PRN (13:35)
[2021-12-31] MEDS ORDERED: PROPRANOLOL 10 MG TAB PO PRN (13:35)
[2021-12-31] MEDS ORDERED: ALBUTEROL 90 MCG/ACT 8GM HFA INHALER INH PRN (13:35)
[2021-12-31 15:02] VITALS: BP 133/85
[2021-12-31] MEDS: PRAZOSIN 1 MG CAP PO SCH (20:44)
[2021-12-31] MEDS: MONTELUKAST 10 MG TAB PO SCH (20:45)
[2021-12-31] MEDS: OXcarbazepine 300 MG TAB PO SCH (20:45)
[2021-12-31] MEDS: GABAPENTIN 300 MG CAP PO SCH (20:45)
[2021-12-31] MEDS: traZODone 100 MG TAB PO PRN (20:45)
[2021-12-31] MEDS: BENZTROPINE 1 MG TAB PO SCH (20:45)
[2021-12-31] MEDS: DULoxetine 30MG CAPSULE (CYMBALTA) PO SCH (20:45)
[2021-12-31] MEDS: ARIPiprazole 10 MG TAB PO SCH (20:46)
[2021-12-31] MEDS ORDERED: OLANZapine ORAL DISINTEGRATING TAB 5MG PO STA (20:52)
[2021-12-31] MEDS ORDERED: MONTELUKAST 10 MG TAB PO SCH (21:00)
[2021-12-31] MEDS ORDERED: PRAZOSIN 1 MG CAP PO SCH (21:00)
[2021-12-31] MEDS ORDERED: ARIPiprazole 10 MG TAB PO SCH (21:00)
[2022-01-01] MEDS: tiZANidine 4 MG TAB PO PRN (06:53)
[2022-01-01 06:58] VITALS: BP 109/67
[2022-01-01] MEDS: DULoxetine 30MG CAPSULE (CYMBALTA) PO SCH ×2 (09:25→22:24)
[2022-01-01] MEDS: FERROUS SULFATE 325MG TAB PO SCH (09:25)
[2022-01-01] MEDS: BENZTROPINE 1 MG TAB PO SCH ×2 (09:25→22:23)
[2022-01-01] MEDS: GABAPENTIN 300 MG CAP PO SCH ×2 (09:26→22:22)
[2022-01-01] MEDS: OXcarbazepine 300 MG TAB PO SCH ×2 (09:27→22:21)
[2022-01-01] MEDS: CETIRIZINE (ZyrTEC) 10 MG TAB PO SCH (09:27)
[2022-01-01 18:37] VITALS: BP 132/72
[2022-01-01] MEDS ORDERED: MAALOX 30 ML SUSP *UDC PO PRN (19:30)
[2022-01-01] MEDS: CIPRODEX OTIC SUSP 7.5ML AS SCH (22:20)
[2022-01-01] MEDS: FLUTICASONE PROP 0.05% NASAL SPRAY 16 GM (FLONASE) NARES SCH (22:21)
[2022-01-01] MEDS: MONTELUKAST 10 MG TAB PO SCH (22:22)
[2022-01-01] MEDS: AUGMENTIN 875 MG TAB PO SCH (22:22)
[2022-01-01] MEDS: PRAZOSIN 1 MG CAP PO SCH (22:23)
[2022-01-01] MEDS: PANTOPRAZOLE 40MG TAB (PROTONIX) PO SCH (22:23)
[2022-01-01] MEDS: OLANZapine ORAL DISINTEGRATING TAB 5MG PO PRN (22:24)
[2022-01-01] MEDS: traZODone 100 MG TAB PO PRN (22:24)
[2022-01-01] MEDS: ARIPiprazole 10 MG TAB PO SCH (22:25)
[2022-01-02] MEDS: tiZANidine 4 MG TAB PO PRN (05:35)
[2022-01-02 06:00] VITALS: BP 123/71
[2022-01-02] MEDS: AUGMENTIN 875 MG TAB PO SCH ×2 (08:15→20:58)
[2022-01-02] MEDS: BENZTROPINE 1 MG TAB PO SCH ×2 (08:15→21:00)
[2022-01-02] MEDS: CETIRIZINE (ZyrTEC) 10 MG TAB PO SCH (08:15)
[2022-01-02] MEDS: FIBER-CON 625 MG TAB PO SCH (08:15)
[2022-01-02] MEDS: FERROUS SULFATE 325MG TAB PO SCH (08:15)
[2022-01-02] MEDS: DULoxetine 30MG CAPSULE (CYMBALTA) PO SCH ×2 (08:15→20:59)
[2022-01-02] MEDS: OXcarbazepine 300 MG TAB PO SCH ×2 (08:15→20:58)
[2022-01-02] MEDS: GABAPENTIN 300 MG CAP PO SCH ×2 (08:15→20:59)
[2022-01-02] MEDS: FLUTICASONE PROP 0.05% NASAL SPRAY 16 GM (FLONASE) NARES SCH ×2 (08:16→20:57)
[2022-01-02] MEDS: CIPRODEX OTIC SUSP 7.5ML AS SCH ×2 (08:16→21:00)
[2022-01-02] MEDS: LIDOCAINE 5% (LIDODERM) PATCH TD SCH (08:17)
[2022-01-02 09:28] LABS: HEMOGLOBIN A1c 5.2 %
[2022-01-02] MEDS: ACETAMINOPHEN TAB 650MG DOSE (2X325MG) PO PRN (16:21)
[2022-01-02] MEDS: traZODone 100 MG TAB PO PRN (20:59)
[2022-01-02] MEDS: ARIPiprazole 10 MG TAB PO SCH (21:00)
[2022-01-02] MEDS: PANTOPRAZOLE 40MG TAB (PROTONIX) PO SCH (21:01)
[2022-01-02] MEDS: PRAZOSIN 1 MG CAP PO SCH (21:01)
[2022-01-02] MEDS: MONTELUKAST 10 MG TAB PO SCH (21:01)
[2022-01-02] MEDS: **NOTE PATIENT COMMENT** MISC XX SCH (21:26)
[2022-01-03 06:27] VITALS: BP 105/53
[2022-01-03] MEDS: BENZTROPINE 1 MG TAB PO SCH ×2 (09:11→20:47)
[2022-01-03] MEDS: DULoxetine 30MG CAPSULE (CYMBALTA) PO SCH ×2 (09:11→20:47)
[2022-01-03] MEDS: FERROUS SULFATE 325MG TAB PO SCH (09:11)
[2022-01-03] MEDS: OLANZapine ORAL DISINTEGRATING TAB 5MG PO PRN ×2 (09:11→18:45)
[2022-01-03] MEDS: CETIRIZINE (ZyrTEC) 10 MG TAB PO SCH (09:11)
[2022-01-03] MEDS: LIDOCAINE 5% (LIDODERM) PATCH TD SCH (09:11)
[2022-01-03] MEDS: OXcarbazepine 300 MG TAB PO SCH ×2 (09:11→20:48)
[2022-01-03] MEDS: AUGMENTIN 875 MG TAB PO SCH ×2 (09:11→20:51)
[2022-01-03] MEDS: GABAPENTIN 300 MG CAP PO SCH ×2 (09:12→20:47)
[2022-01-03] MEDS: CIPRODEX OTIC SUSP 7.5ML AS SCH ×2 (09:12→20:49)
[2022-01-03] MEDS: FIBER-CON 625 MG TAB PO SCH (09:12)
[2022-01-03] MEDS: FLUTICASONE PROP 0.05% NASAL SPRAY 16 GM (FLONASE) NARES SCH ×2 (09:12→20:49)
[2022-01-03] MEDS ORDERED: MIRALAX *UNIT DOSE* 17GM PACKET PO PRN (14:55)
[2022-01-03] MEDS: DOCUSATE SODIUM 100MG CAPSULE PO SCH ×3 (14:55→18:45)
[2022-01-03 18:00] VITALS: BP 129/88
[2022-01-03] MEDS: MONTELUKAST 10 MG TAB PO SCH (20:47)
[2022-01-03] MEDS: PANTOPRAZOLE 40MG TAB (PROTONIX) PO SCH (20:48)
[2022-01-03] MEDS: ARIPiprazole 10 MG TAB PO SCH (20:48)
[2022-01-03] MEDS: **NOTE PATIENT COMMENT** MISC XX SCH (20:49)
[2022-01-03] MEDS: PRAZOSIN 1 MG CAP PO SCH (20:49)
[2022-01-03] MEDS: ACETAMINOPHEN TAB 650MG DOSE (2X325MG) PO PRN (20:50)
[2022-01-04] MEDS: traZODone 100 MG TAB PO PRN ×2 (01:28→21:01)
[2022-01-04 06:23] VITALS: BP 121/72
[2022-01-04] MEDS: FLUTICASONE PROP 0.05% NASAL SPRAY 16 GM (FLONASE) NARES SCH ×2 (09:33→21:00)
[2022-01-04] MEDS: LIDOCAINE 5% (LIDODERM) PATCH TD SCH (09:34)
[2022-01-04] MEDS: CIPRODEX OTIC SUSP 7.5ML AS SCH ×2 (09:34→21:01)
[2022-01-04] MEDS: OXcarbazepine 300 MG TAB PO SCH ×2 (09:34→21:01)
[2022-01-04] MEDS: FIBER-CON 625 MG TAB PO SCH (09:35)
[2022-01-04] MEDS: DOCUSATE SODIUM 100MG CAPSULE PO SCH ×2 (09:35→21:02)
[2022-01-04] MEDS: FERROUS SULFATE 325MG TAB PO SCH (09:35)
[2022-01-04] MEDS: GABAPENTIN 300 MG CAP PO SCH ×2 (09:35→21:00)
[2022-01-04] MEDS: CETIRIZINE (ZyrTEC) 10 MG TAB PO SCH (09:35)
[2022-01-04] MEDS: AUGMENTIN 875 MG TAB PO SCH ×2 (09:35→21:02)
[2022-01-04] MEDS: BENZTROPINE 1 MG TAB PO SCH ×2 (09:35→21:01)
[2022-01-04] MEDS: DULoxetine 30MG CAPSULE (CYMBALTA) PO SCH ×2 (09:35→21:01)
[2022-01-04] MEDS: OLANZapine ORAL DISINTEGRATING TAB 5MG PO PRN ×2 (14:53→21:02)
[2022-01-04 18:49] VITALS: BP 135/90
[2022-01-04] MEDS ORDERED: BISACODYL 5 MG TAB PO PRN (20:30)
[2022-01-04] MEDS: ARIPiprazole 10 MG TAB PO SCH (21:01)
[2022-01-04] MEDS: MONTELUKAST 10 MG TAB PO SCH (21:01)
[2022-01-04] MEDS: PANTOPRAZOLE 40MG TAB (PROTONIX) PO SCH (21:02)
[2022-01-04] MEDS: PRAZOSIN 1 MG CAP PO SCH (21:02)
[2022-01-04] MEDS: **NOTE PATIENT COMMENT** MISC XX SCH (21:09)
[2022-01-05] MEDS: ACETAMINOPHEN TAB 650MG DOSE (2X325MG) PO PRN (06:37)
[2022-01-05 06:58] VITALS: BP 129/80
[2022-01-05 07:31] LABS: BASO # 0.1 10^3/uL (0.0-0.2); BASO % 0.5 % (0.0-1.0); EOS # 0.1 10^3/uL (0.0-0.5); EOS % 1.1 % (0.0-3.0); HEMATOCRIT 37.4 % (36.0-47.0); HEMOGLOBIN 11.8 g/dl (12.0-15.5); LYMPH # 2.4 10^3/uL (1.5-5.0); LYMPH % 25.8 % (24.0-44.0); MEAN CORPUSCULAR HEMOGLOBIN 26.4 pg (27.0-33.0); MEAN CORPUSCULAR HGB CONC 31.6 g/dl (32.0-36.5); MEAN CORPUSCULAR VOLUME 83.7 fl (80.0-96.0); MONO # 0.9 10^3/uL (0.0-0.8); MONO % 9.9 % (2.0-8.0); NEUTROPHILS # 5.8 10^3/uL (1.5-8.5); NEUTROPHILS % 62.4 % (36.0-66.0); PLATELET COUNT, AUTOMATED 306 10^3/uL (150-450); RED BLOOD COUNT 4.47 10^6/uL (4.00-5.40); WHITE BLOOD COUNT 9.2 10^3/uL (4.0-10.0)
[2022-01-05 07:52] LABS: BLOOD UREA NITROGEN 8 MG/DL (7-18); CALCIUM LEVEL 8.8 MG/DL (8.5-10.1); CARBON DIOXIDE LEVEL 30 MEQ/L (21-32); CHLORIDE LEVEL 110 MEQ/L (98-107); CREATININE FOR GFR 0.62 MG/DL (0.55-1.30); GLOMERULAR FILTRATION RATE > 60.0 (>60); GLUCOSE, FASTING 90 MG/DL (70-100); POTASSIUM SERUM 4.1 MEQ/L (3.5-5.1); SODIUM LEVEL 144 MEQ/L (136-145)
[2022-01-05] MEDS: FIBER-CON 625 MG TAB PO SCH (08:24)
[2022-01-05] MEDS: CETIRIZINE (ZyrTEC) 10 MG TAB PO SCH (08:24)
[2022-01-05] MEDS: AUGMENTIN 875 MG TAB PO SCH ×2 (08:24→21:30)
[2022-01-05] MEDS: FLUTICASONE PROP 0.05% NASAL SPRAY 16 GM (FLONASE) NARES SCH ×2 (08:25→21:30)
[2022-01-05] MEDS: FERROUS SULFATE 325MG TAB PO SCH (08:25)
[2022-01-05] MEDS: CIPRODEX OTIC SUSP 7.5ML AS SCH ×2 (08:25→21:30)
[2022-01-05] MEDS: BENZTROPINE 1 MG TAB PO SCH ×2 (08:26→21:28)
[2022-01-05] MEDS: GABAPENTIN 300 MG CAP PO SCH ×2 (08:26→21:25)
[2022-01-05] MEDS: DULoxetine 30MG CAPSULE (CYMBALTA) PO SCH ×2 (08:27→21:27)
[2022-01-05] MEDS: LACTOBACILLUS ACIDOPHILUS CAP (BACID) PO SCH (08:27)
[2022-01-05] MEDS: DOCUSATE SODIUM 100MG CAPSULE PO SCH ×2 (08:27→21:27)
[2022-01-05] MEDS: LIDOCAINE 5% (LIDODERM) PATCH TD SCH ×2 (08:29→21:44)
[2022-01-05] MEDS: OXcarbazepine 300 MG TAB PO SCH ×2 (08:30→21:27)
[2022-01-05] MEDS: OLANZapine ORAL DISINTEGRATING TAB 5MG PO PRN (11:14)
[2022-01-05 19:45] VITALS: BP 147/87
[2022-01-05] MEDS: MONTELUKAST 10 MG TAB PO SCH (21:24)
[2022-01-05] MEDS: ARIPiprazole 10 MG TAB PO SCH (21:25)
[2022-01-05] MEDS: traZODone 100 MG TAB PO PRN (21:25)
[2022-01-05] MEDS: PANTOPRAZOLE 40MG TAB (PROTONIX) PO SCH (21:26)
[2022-01-05] MEDS: PRAZOSIN 1 MG CAP PO SCH (21:28)
[2022-01-05] MEDS: IBUPROFEN 600MG TAB PO PRN (21:29)
[2022-01-06 06:56] VITALS: BP 155/98
[2022-01-06] MEDS: AUGMENTIN 875 MG TAB PO SCH ×2 (08:21→21:30)
[2022-01-06] MEDS: CETIRIZINE (ZyrTEC) 10 MG TAB PO SCH (08:22)
[2022-01-06] MEDS: FLUTICASONE PROP 0.05% NASAL SPRAY 16 GM (FLONASE) NARES SCH ×2 (08:22→21:29)
[2022-01-06] MEDS: FERROUS SULFATE 325MG TAB PO SCH (08:22)
[2022-01-06] MEDS: FIBER-CON 625 MG TAB PO SCH (08:22)
[2022-01-06] MEDS: OXcarbazepine 300 MG TAB PO SCH ×2 (08:24→21:31)
[2022-01-06] MEDS: LACTOBACILLUS ACIDOPHILUS CAP (BACID) PO SCH (08:24)
[2022-01-06] MEDS: DULoxetine 30MG CAPSULE (CYMBALTA) PO SCH ×2 (08:24→21:31)
[2022-01-06] MEDS: GABAPENTIN 300 MG CAP PO SCH ×2 (08:25→21:31)
[2022-01-06] MEDS: BENZTROPINE 1 MG TAB PO SCH ×2 (08:25→21:31)
[2022-01-06] MEDS: **NOTE PATIENT COMMENT** MISC XX SCH (08:26)
[2022-01-06] MEDS: CIPRODEX OTIC SUSP 7.5ML AS SCH (08:27)
[2022-01-06] MEDS: DOCUSATE SODIUM 100MG CAPSULE PO SCH ×2 (08:28→21:30)
[2022-01-06] MEDS: ACETAMINOPHEN TAB 650MG DOSE (2X325MG) PO PRN (12:16)
[2022-01-06 13:52] LABS: GC DNA AMPLIFICATION NEGATIVE (NEGATIVE)
[2022-01-06 20:15] VITALS: BP 152/85
[2022-01-06] MEDS: OLANZapine ORAL DISINTEGRATING TAB 5MG PO PRN (20:35)
[2022-01-06 20:56] VITALS: BP 147/87
[2022-01-06] MEDS: LIDOCAINE 5% (LIDODERM) PATCH TD SCH (21:30)
[2022-01-06] MEDS: PANTOPRAZOLE 40MG TAB (PROTONIX) PO SCH (21:31)
[2022-01-06] MEDS: ARIPiprazole 10 MG TAB PO SCH (21:31)
[2022-01-06] MEDS: MONTELUKAST 10 MG TAB PO SCH (21:31)
[2022-01-06 21:32] VITALS: BP 147/87
[2022-01-06] MEDS: PRAZOSIN 1 MG CAP PO SCH (21:32)
[2022-01-06] MEDS: IBUPROFEN 600MG TAB PO PRN (21:36)
[2022-01-06] MEDS: traZODone 100 MG TAB PO PRN (21:38)
[2022-01-07] MEDS: ACETAMINOPHEN TAB 650MG DOSE (2X325MG) PO PRN (03:06)
[2022-01-07] MEDS: PHENAZOPYRIDINE 100 MG TAB PO PRN ×2 (06:03→08:34)
[2022-01-07 06:34] VITALS: BP 135/85
[2022-01-07] MEDS: **NOTE PATIENT COMMENT** MISC XX SCH (08:30)
[2022-01-07] MEDS: AUGMENTIN 875 MG TAB PO SCH (08:34)
[2022-01-07] MEDS: OXcarbazepine 300 MG TAB PO SCH (08:34)
[2022-01-07] MEDS: LACTOBACILLUS ACIDOPHILUS CAP (BACID) PO SCH (08:34)
[2022-01-07] MEDS: BENZTROPINE 1 MG TAB PO SCH (08:34)
[2022-01-07] MEDS: FERROUS SULFATE 325MG TAB PO SCH (08:34)
[2022-01-07] MEDS: DULoxetine 30MG CAPSULE (CYMBALTA) PO SCH (08:34)
[2022-01-07] MEDS: FLUTICASONE PROP 0.05% NASAL SPRAY 16 GM (FLONASE) NARES SCH (08:34)
[2022-01-07] MEDS: GABAPENTIN 300 MG CAP PO SCH (08:34)
[2022-01-07] MEDS: CETIRIZINE (ZyrTEC) 10 MG TAB PO SCH (08:34)
[2022-01-07] MEDS: DOCUSATE SODIUM 100MG CAPSULE PO SCH (08:34)
[2022-01-07] MEDS: FIBER-CON 625 MG TAB PO SCH (08:35)
[2022-01-07] MEDS ORDERED: GABA-282 PO (09:03)
[2022-01-07] MEDS ORDERED: PRAZ1CAP PO (09:03)
[2022-01-07] MEDS ORDERED: DULO1CAP5 PO (09:03)
[2022-01-07] MEDS ORDERED: OXCA600T8 PO (09:03)
[2022-01-07] MEDS ORDERED: COLA100C5 PO (09:03)
[2022-01-07] MEDS ORDERED: LIDO5TD TD (09:03)
[2022-01-07] MEDS ORDERED: MIRA1POW3 PO (09:03)
[2022-01-07] MEDS ORDERED: TRAZ-252 PO (09:03)
[2022-01-07] MEDS ORDERED: AMOX875T2 PO (09:03)
[2022-01-07] MEDS ORDERED: ABIL30TA4 PO (09:03)
== END 2022-01-07 15:16 | disposition home or self-care (01) | DRG 753 ==
LOC: M ED 23:57 → M ED INP 12-31 13:31 → M PSY 12-31 15:19
PROVIDERS: ADMIT Student in an Organized Health Care Education/Training Program; ATTEND Student in an Organized Health Care Education/Training Program
DX: F32.89 Other specified depressive episodes (principal); R45.850 Homicidal ideations; R45.851 Suicidal ideations; F43.9 Reaction to severe stress, unspecified; F60.3 Borderline personality disorder; F17.200 Nicotine dependence, unspecified, uncomplicated; Z79.899 Other long term (current) drug therapy; Z91.018 Allergy to other foods; Z88.8 Allergy status to other drugs, medicaments and biological substances; J45.909 Unspecified asthma, uncomplicated; E66.9 Obesity, unspecified; M79.7 Fibromyalgia; M54.50 Low back pain, unspecified; H66.92 Otitis media, unspecified, left ear

== ENCOUNTER 2022-02-11 13:32 | Emergency (ER) | payer MEDICAID, OTHER ==
[~2022-02-11] VITALS: Ht 149.9 cm; Wt 97.1 kg
[2022-02-11 13:32] VITALS: BP 139/91
[~2022-02-11 13:32] MED LIST changes: +ABIL30TA4 PO; +AMOX875T2 PO; +ARIP1TAB43 PO; +BENZ-52 PO; +CETI5SOL3 PO; +COLA100C5 PO; +DULO1CAP5 PO; +FERR325T3 PO; +LIDO5TD TD; +MIRA1POW3 PO; +MONT10TA97 PO; +ONDA-83 PO; +ONDA4TAB6 PO; +OXCA600T8 PO; +PHEN1TAB73 PO; +PRAZ1CAP PO; +PROP10TA56 PO; +TIZA2TA PO; +TRAZ-252 PO; +med rec comment
== END 2022-02-11 16:15 | disposition left against medical advice (07) ==
LOC: M ED 13:32
DX: Z53.21 Procedure and treatment not carried out due to patient leaving prior to being seen by health care provider (principal)

== ENCOUNTER → 2022-02-12 | Outpatient (REF) | payer OTHER, MEDICAID ==
[2022-02-12 18:26] LABS: APPEARANCE, URINE HAZY (CLEAR); BACTERIA, URINE AUTO 1+ (NEGATIVE); BILIRUBIN, URINE AUTO NEGATIVE (NEGATIVE); BLOOD, URINE BLOOD NEGATIVE (NEGATIVE); COLOR, URINE AMBER (YELLOW); GLUCOSE, URINE (UA) AUTO NEGATIVE (NEGATIVE); KETONE, URINE AUTO NEGATIVE (NEGATIVE); LEUKOCYTE ESTERASE, URINE AUTO NEGATIVE (NEGATIVE); MUCUS, URINE SMALL (NEGATIVE); NITRITE, URINE AUTO POSITIVE (NEGATIVE); PROTEIN, URINE AUTO NEGATIVE (NEGATIVE); RBC, URINE AUTO 3 /HPF (0-3); SPECIFIC GRAVITY URINE AUTO 1.023 (1.002-1.035); SQUAMOUS EPITHELIAL CELL UR AU 11 /HPF (0-6); WBC, URINE AUTO 3 /HPF (0-3)
== END ==
LOC: M SFHCPLAZ 16:55
PROVIDERS: ATTEND Physician Assistant
DX: R10.30 Lower abdominal pain, unspecified (principal)

== ENCOUNTER 2022-02-16 16:30 | Inpatient (IN) | payer MEDICAID, OTHER ==
[~2022-02-16] VITALS: Ht 149.9 cm; Wt 104.9 kg
[2022-02-16 17:45] LABS: HEMATOCRIT 37.4 % (36.0-47.0); HEMOGLOBIN 11.8 g/dl (12.0-15.5); MEAN CORPUSCULAR HGB CONC 31.6 g/dl (32.0-36.5); MEAN CORPUSCULAR VOLUME 85.6 fl (80.0-96.0); PLATELET COUNT, AUTOMATED 327 10^3/uL (150-450); RED BLOOD COUNT 4.37 10^6/uL (4.00-5.40); WHITE BLOOD COUNT 13.1 10^3/uL (4.0-10.0)
[2022-02-16 18:07] LABS: HCG, SERUM QUALITATIVE NEGATIVE (NEGATIVE)
[2022-02-16 18:15] LABS: ACETAMINOPHEN LEVEL < 2.0 UG/ML (10.0-30.0); ALBUMIN 3.2 GM/DL (3.2-5.2); ALT/SGPT 30 U/L (12-78); BILIRUBIN,DIRECT < 0.1 MG/DL (0.0-0.2); BILIRUBIN,TOTAL 0.2 MG/DL (0.2-1.0); BLOOD UREA NITROGEN 9 MG/DL (7-18); CALCIUM LEVEL 8.7 MG/DL (8.5-10.1); CARBON DIOXIDE LEVEL 27 MEQ/L (21-32); CHLORIDE LEVEL 107 MEQ/L (98-107); CREATININE FOR GFR 0.52 MG/DL (0.55-1.30); ETHYL ALCOHOL (ETHANOL) < 0.003 % (0.000-0.010); GLOMERULAR FILTRATION RATE > 60.0 (>60); GLUCOSE, FASTING 91 MG/DL (70-100); POTASSIUM SERUM 3.7 MEQ/L (3.5-5.1); SALICYLATE LEVEL < 1.7 MG/DL (5.0-30.0); SODIUM LEVEL 141 MEQ/L (136-145); TOTAL PROTEIN 6.8 GM/DL (6.4-8.2)
[2022-02-16 18:20] LABS: AMPHETAMINES LEVEL URINE NEGATIVE (NEGATIVE); BARBITURATES URINE NEGATIVE (NEGATIVE); BENZODIAZEPINES URINE NEGATIVE (NEGATIVE); CANNABINOIDS URINE NEGATIVE (NEGATIVE); COCAINE METABOLITE URINE NEGATIVE (NEGATIVE); METHADONE URINE NEGATIVE (NEGATIVE); OPIATES URINE NEGATIVE (NEGATIVE); PHENCYCLIDINE URINE NEGATIVE (NEGATIVE)
[2022-02-16 18:30] LABS: RSV AMPLIFICATION NEGATIVE (NEGATIVE)
[2022-02-16] MEDS ORDERED: DOK100TA2 PO (20:29)
[2022-02-16] MEDS ORDERED: ARIP1TAB43 PO (20:29)
[2022-02-16] MEDS ORDERED: OXCA600T8 PO (20:29)
[2022-02-16] MEDS ORDERED: MIRA3350 PO (20:29)
[2022-02-16] MEDS ORDERED: PROAAER10 INH (20:29)
[2022-02-16] MEDS ORDERED: AMOX875T2 PO (20:29)
[2022-02-16] MEDS ORDERED: DULO30CA9 PO (20:29)
[2022-02-16] MEDS ORDERED: TRAZ-252 PO (20:29)
[2022-02-16] MEDS ORDERED: GABA-282 PO (20:29)
[2022-02-16] MEDS ORDERED: PRAZ1CAP PO (20:29)
[2022-02-16] MEDS ORDERED: MIRT1TAB PO (20:30)
[2022-02-16] MEDS ORDERED: DOXE25CA PO (20:30)
[2022-02-16] MEDS ORDERED: med rec comment (20:39)
[2022-02-16] MEDS ORDERED: HOME MED LIST COMPLETE! XX SCH (20:40)
[2022-02-16] MEDS ORDERED: GABAPENTIN 300 MG CAP PO ONE (20:50)
[2022-02-16] MEDS ORDERED: MONTELUKAST 10 MG TAB PO ONE (20:50)
[2022-02-16] MEDS ORDERED: OXcarbazepine 300 MG TAB PO ONE (20:50)
[2022-02-16] MEDS ORDERED: BENZTROPINE 1 MG TAB PO ONE (20:50)
[2022-02-16] MEDS ORDERED: DULoxetine 30MG CAPSULE (CYMBALTA) PO ONE (20:50)
[2022-02-16] MEDS ORDERED: ACETAMINOPHEN TAB 650MG DOSE (2X325MG) PO ONE (21:00)
[2022-02-17] MEDS ORDERED: ACETAMINOPHEN TAB 650MG DOSE (2X325MG) PO ONE ×2 (02:45→08:35)
[2022-02-17] MEDS ORDERED: PRAZ1CAP PO (08:02)
[2022-02-17] MEDS: DULoxetine 30MG CAPSULE (CYMBALTA) PO SCH ×2 (08:24→22:51)
[2022-02-17] MEDS: FERROUS SULFATE 325MG TAB PO SCH (08:25)
[2022-02-17] MEDS: CETIRIZINE (ZyrTEC) 10 MG TAB PO SCH (08:25)
[2022-02-17] MEDS: PRAZOSIN 1 MG CAP PO SCH (08:25)
[2022-02-17] MEDS: BENZTROPINE 1 MG TAB PO SCH ×2 (08:25→22:50)
[2022-02-17] MEDS: GABAPENTIN 300 MG CAP PO SCH ×2 (08:25→22:51)
[2022-02-17] MEDS: AUGMENTIN 875 MG TAB PO SCH ×2 (08:25→22:50)
[2022-02-17] MEDS: OXcarbazepine 300 MG TAB PO SCH ×2 (08:25→23:17)
[2022-02-17] MEDS ORDERED: MIRTAZAPINE 7.5MG PER 1/2 TABLET PO SCH (21:00)
[2022-02-17] MEDS ORDERED: LIDOCAINE 5% (LIDODERM) PATCH TD SCH (21:00)
[2022-02-17] MEDS ORDERED: PRAZOSIN 1 MG CAP PO SCH (21:00)
[2022-02-17] MEDS ORDERED: MONTELUKAST 10 MG TAB PO SCH (21:00)
[2022-02-17] MEDS ORDERED: ARIPiprazole 10 MG TAB PO SCH (21:00)
[2022-02-17] MEDS ORDERED: **NOTE PATIENT COMMENT** MISC XX SCH (21:00)
[2022-02-17] MEDS ORDERED: DOXEPIN 25 MG CAP PO SCH (21:00)
[2022-02-18] MEDS: AUGMENTIN 875 MG TAB PO SCH ×2 (08:40→21:32)
[2022-02-18] MEDS: PRAZOSIN 1 MG CAP PO SCH ×2 (08:41→21:32)
[2022-02-18] MEDS: FERROUS SULFATE 325MG TAB PO SCH (08:41)
[2022-02-18] MEDS: CETIRIZINE (ZyrTEC) 10 MG TAB PO SCH (08:42)
[2022-02-18] MEDS: OXcarbazepine 300 MG TAB PO SCH ×2 (08:42→21:52)
[2022-02-18] MEDS: DULoxetine 30MG CAPSULE (CYMBALTA) PO SCH ×2 (08:42→21:34)
[2022-02-18] MEDS: BENZTROPINE 1 MG TAB PO SCH ×2 (08:42→21:34)
[2022-02-18] MEDS: GABAPENTIN 300 MG CAP PO SCH ×2 (08:43→21:33)
[2022-02-18] MEDS ORDERED: ALBUTEROL 90 MCG/ACT 8GM HFA INHALER INH PRN (15:15)
[2022-02-18] MEDS ORDERED: MAALOX 30 ML SUSP *UDC PO PRN (15:15)
[2022-02-18] MEDS ORDERED: PHENAZOPYRIDINE 100 MG TAB PO PRN (15:15)
[2022-02-18] MEDS ORDERED: MIRALAX *UNIT DOSE* 17GM PACKET PO PRN (15:15)
[2022-02-18] MEDS ORDERED: MOM 30ML SUSPENSION UDC PO PRN (15:15)
[2022-02-18] MEDS ORDERED: traZODone 50 MG TAB PO PRN (15:15)
[2022-02-18] MEDS ORDERED: DOCUSATE SODIUM 100MG CAPSULE PO PRN (15:15)
[2022-02-18] MEDS: LIDOCAINE 5% (LIDODERM) PATCH TD SCH (21:30)
[2022-02-18] MEDS: ARIPiprazole 10 MG TAB PO SCH (21:32)
[2022-02-18] MEDS: MONTELUKAST 10 MG TAB PO SCH (21:52)
[2022-02-18 23:02] VITALS: BP 145/98
[2022-02-18] MEDS: MIRTAZAPINE 7.5MG PER 1/2 TABLET PO SCH (23:13)
[2022-02-18] MEDS: DOXEPIN 25 MG CAP PO SCH (23:13)
[2022-02-19 06:08] VITALS: BP 142/91
[2022-02-19] MEDS: OXcarbazepine 300 MG TAB PO SCH ×2 (07:45→20:58)
[2022-02-19] MEDS: PRAZOSIN 1 MG CAP PO SCH ×2 (07:45→20:59)
[2022-02-19] MEDS: FERROUS SULFATE 325MG TAB PO SCH (07:45)
[2022-02-19] MEDS: GABAPENTIN 300 MG CAP PO SCH ×2 (07:46→20:59)
[2022-02-19] MEDS: BENZTROPINE 1 MG TAB PO SCH ×2 (07:46→20:58)
[2022-02-19] MEDS: AUGMENTIN 875 MG TAB PO SCH ×2 (07:46→20:59)
[2022-02-19] MEDS: CETIRIZINE (ZyrTEC) 10 MG TAB PO SCH (07:46)
[2022-02-19] MEDS: DULoxetine 30MG CAPSULE (CYMBALTA) PO SCH ×2 (07:47→20:59)
[2022-02-19] MEDS: **NOTE PATIENT COMMENT** MISC XX SCH (07:56)
[2022-02-19] MEDS ORDERED: INFLUENZA QUADRIVALENT PF VACCINE 0.5ML SYRINGE IM ONE (09:00)
[2022-02-19] MEDS: PROPRANOLOL 10 MG TAB PO PRN (12:07)
[2022-02-19] MEDS: hydrOXYzine 50 MG TAB PO PRN (12:08)
[2022-02-19] MEDS ORDERED: OLANZapine ORAL DISINTEGRATING TAB 5MG PO STA (15:13)
[2022-02-19] MEDS: IBUPROFEN 200MG TAB PO PRN (16:48)
[2022-02-19 17:07] VITALS: BP 113/76
[2022-02-19] MEDS: LIDOCAINE 5% (LIDODERM) PATCH TD SCH (20:57)
[2022-02-19] MEDS: ARIPiprazole 10 MG TAB PO SCH (20:58)
[2022-02-19] MEDS: NEOSPORIN TOP OINT 15GM TOP SCH (20:58)
[2022-02-19] MEDS: MONTELUKAST 10 MG TAB PO SCH (20:59)
[2022-02-19] MEDS: DOXEPIN 25 MG CAP PO SCH (20:59)
[2022-02-19] MEDS: MIRTAZAPINE 7.5MG PER 1/2 TABLET PO SCH (20:59)
[2022-02-20 06:19] VITALS: BP 142/93
[2022-02-20] MEDS: hydrOXYzine 50 MG TAB PO PRN ×2 (06:39→21:21)
[2022-02-20] MEDS: FERROUS SULFATE 325MG TAB PO SCH (08:41)
[2022-02-20] MEDS: CETIRIZINE (ZyrTEC) 10 MG TAB PO SCH (08:41)
[2022-02-20] MEDS: OXcarbazepine 300 MG TAB PO SCH ×2 (08:41→20:18)
[2022-02-20] MEDS: PRAZOSIN 1 MG CAP PO SCH ×2 (08:41→20:25)
[2022-02-20] MEDS: AUGMENTIN 875 MG TAB PO SCH ×2 (08:41→20:15)
[2022-02-20] MEDS: GABAPENTIN 300 MG CAP PO SCH ×2 (08:42→20:17)
[2022-02-20] MEDS: DULoxetine 30MG CAPSULE (CYMBALTA) PO SCH ×2 (08:42→20:17)
[2022-02-20] MEDS: BENZTROPINE 1 MG TAB PO SCH ×2 (08:42→20:17)
[2022-02-20] MEDS: NEOSPORIN TOP OINT 15GM TOP SCH ×2 (08:42→20:27)
[2022-02-20] MEDS: **NOTE PATIENT COMMENT** MISC XX SCH (08:45)
[2022-02-20] MEDS: OLANZapine ORAL DISINTEGRATING TAB 5MG PO PRN ×3 (10:44→21:24)
[2022-02-20] MEDS: CIPRODEX OTIC SUSP 7.5ML AD SCH ×2 (13:28→20:19)
[2022-02-20] MEDS: ACETAMINOPHEN TAB 650MG DOSE (2X325MG) PO PRN (15:10)
[2022-02-20 17:18] VITALS: BP 128/69
[2022-02-20] MEDS: ARIPiprazole 10 MG TAB PO SCH (20:15)
[2022-02-20] MEDS: OXcarbazepine 150 MG TAB PO SCH (20:16)
[2022-02-20] MEDS: DOXEPIN 25 MG CAP PO SCH (20:17)
[2022-02-20] MEDS: MONTELUKAST 10 MG TAB PO SCH (20:17)
[2022-02-20] MEDS: LIDOCAINE 5% (LIDODERM) PATCH TD SCH (20:19)
[2022-02-20] MEDS ORDERED: OLANZapine ORAL DISINTEGRATING TAB 5MG PO ONE (22:05)
[2022-02-21] MEDS: ACETAMINOPHEN TAB 650MG DOSE (2X325MG) PO PRN (05:23)
[2022-02-21 06:39] VITALS: BP 112/71
[2022-02-21 06:40] VITALS: BP 155/99
[2022-02-21] MEDS: BENZTROPINE 1 MG TAB PO SCH ×2 (08:46→21:41)
[2022-02-21] MEDS: OXcarbazepine 300 MG TAB PO SCH ×2 (08:46→21:40)
[2022-02-21] MEDS: OXcarbazepine 150 MG TAB PO SCH ×2 (08:46→21:40)
[2022-02-21] MEDS: DULoxetine 30MG CAPSULE (CYMBALTA) PO SCH ×2 (08:47→21:41)
[2022-02-21] MEDS: AUGMENTIN 875 MG TAB PO SCH ×2 (08:47→21:41)
[2022-02-21] MEDS: CETIRIZINE (ZyrTEC) 10 MG TAB PO SCH (08:47)
[2022-02-21] MEDS: FERROUS SULFATE 325MG TAB PO SCH (08:47)
[2022-02-21] MEDS: GABAPENTIN 300 MG CAP PO SCH ×2 (08:47→21:41)
[2022-02-21] MEDS: NEOSPORIN TOP OINT 15GM TOP SCH ×2 (08:48→21:41)
[2022-02-21] MEDS: PRAZOSIN 1 MG CAP PO SCH ×2 (08:48→21:39)
[2022-02-21] MEDS: **NOTE PATIENT COMMENT** MISC XX SCH (09:00)
[2022-02-21] MEDS: CIPRODEX OTIC SUSP 7.5ML AD SCH ×2 (09:05→21:36)
[2022-02-21] MEDS: tiZANidine 4 MG TAB PO PRN (09:26)
[2022-02-21] MEDS: OLANZapine ORAL DISINTEGRATING TAB 5MG PO PRN (10:19)
[2022-02-21] MEDS: IBUPROFEN 200MG TAB PO PRN (10:19)
[2022-02-21] MEDS: ONDANSETRON 4MG TAB PO PRN (14:19)
[2022-02-21] MEDS: NORCO, ANEXSIA 5/325MG TABLET (HYDROcodone/ACETAMINOPHEN) PO PRN (14:20)
[2022-02-21] MEDS: hydrOXYzine 50 MG TAB PO PRN (16:42)
[2022-02-21] MEDS: KETOROLAC TROMETHAMINE 10 MG TAB PO PRN ×2 (16:42→21:39)
[2022-02-21 18:00] VITALS: BP_SYST 103; BP_SYST 126; BP_DIAS 57; BP_DIAS 82
[2022-02-21] MEDS: LevoFLOXacin 750 MG TABLET PO SCH (20:01)
[2022-02-21] MEDS ORDERED: traZODone 100 MG TAB PO SCH (21:00)
[2022-02-21] MEDS ORDERED: NEOSPORIN TOP OINT 15GM TOP SCH (21:00)
[2022-02-21] MEDS: MONTELUKAST 10 MG TAB PO SCH (21:40)
[2022-02-21] MEDS: ARIPiprazole 10 MG TAB PO SCH (21:41)
[2022-02-21] MEDS: DOXEPIN 25 MG CAP PO SCH (21:41)
[2022-02-21] MEDS: LIDOCAINE 5% (LIDODERM) PATCH TD SCH (21:42)
[2022-02-22] MEDS: OLANZapine ORAL DISINTEGRATING TAB 5MG PO PRN (04:25)
[2022-02-22] MEDS: hydrOXYzine 50 MG TAB PO PRN (04:25)
[2022-02-22] MEDS: PROPRANOLOL 10 MG TAB PO PRN (04:33)
[2022-02-22 06:00] VITALS: BP 130/71
[2022-02-22] MEDS: CIPRODEX OTIC SUSP 7.5ML AD SCH ×2 (08:49→21:06)
[2022-02-22] MEDS: FERROUS SULFATE 325MG TAB PO SCH (08:49)
[2022-02-22] MEDS: BENZTROPINE 1 MG TAB PO SCH ×2 (08:50→21:03)
[2022-02-22] MEDS: OXcarbazepine 300 MG TAB PO SCH ×2 (08:50→21:03)
[2022-02-22] MEDS: OXcarbazepine 150 MG TAB PO SCH ×2 (08:50→21:03)
[2022-02-22] MEDS: PRAZOSIN 1 MG CAP PO SCH ×2 (08:50→21:04)
[2022-02-22] MEDS: GABAPENTIN 300 MG CAP PO SCH ×2 (08:50→21:05)
[2022-02-22] MEDS: AUGMENTIN 875 MG TAB PO SCH ×2 (08:50→21:04)
[2022-02-22] MEDS: CETIRIZINE (ZyrTEC) 10 MG TAB PO SCH (08:50)
[2022-02-22] MEDS: DULoxetine 30MG CAPSULE (CYMBALTA) PO SCH ×2 (08:50→21:03)
[2022-02-22] MEDS: **NOTE PATIENT COMMENT** MISC XX SCH (08:51)
[2022-02-22] MEDS: NEOSPORIN TOP OINT 15GM TOP SCH ×2 (08:51→21:11)
[2022-02-22] MEDS: NORCO, ANEXSIA 5/325MG TABLET (HYDROcodone/ACETAMINOPHEN) PO PRN ×2 (08:55→21:05)
[2022-02-22] MEDS: KETOROLAC TROMETHAMINE 10 MG TAB PO PRN (13:01)
[2022-02-22] MEDS: LevoFLOXacin 750 MG TABLET PO SCH (17:14)
[2022-02-22 18:00] VITALS: BP 144/69
[2022-02-22] MEDS: ONDANSETRON 4MG TAB PO PRN (20:23)
[2022-02-22] MEDS: DOXEPIN 25 MG CAP PO SCH (21:02)
[2022-02-22] MEDS: QUEtiapine FUMARATE 100 MG TAB PO SCH (21:03)
[2022-02-22] MEDS: ARIPiprazole 10 MG TAB PO SCH (21:04)
[2022-02-22] MEDS: MONTELUKAST 10 MG TAB PO SCH (21:04)
[2022-02-22] MEDS: LIDOCAINE 5% (LIDODERM) PATCH TD SCH (21:06)
[2022-02-23] MEDS: KETOROLAC TROMETHAMINE 10 MG TAB PO PRN (01:53)
[2022-02-23] MEDS: ACETAMINOPHEN TAB 650MG DOSE (2X325MG) PO PRN ×2 (05:50→11:57)
[2022-02-23 06:39] VITALS: BP 132/91
[2022-02-23] MEDS: CIPRODEX OTIC SUSP 7.5ML AD SCH ×2 (08:57→20:06)
[2022-02-23] MEDS: BENZTROPINE 1 MG TAB PO SCH ×2 (08:58→20:04)
[2022-02-23] MEDS: OXcarbazepine 150 MG TAB PO SCH ×2 (08:59→20:04)
[2022-02-23] MEDS: OXcarbazepine 300 MG TAB PO SCH ×2 (08:59→20:05)
[2022-02-23] MEDS: NEOSPORIN TOP OINT 15GM TOP SCH ×2 (09:00→20:06)
[2022-02-23] MEDS: CETIRIZINE (ZyrTEC) 10 MG TAB PO SCH (09:00)
[2022-02-23] MEDS: GABAPENTIN 300 MG CAP PO SCH ×2 (09:00→20:03)
[2022-02-23] MEDS: FERROUS SULFATE 325MG TAB PO SCH (09:00)
[2022-02-23] MEDS: DULoxetine 30MG CAPSULE (CYMBALTA) PO SCH ×2 (09:00→20:04)
[2022-02-23] MEDS: PRAZOSIN 1 MG CAP PO SCH ×2 (09:01→20:05)
[2022-02-23] MEDS: **NOTE PATIENT COMMENT** MISC XX SCH (09:04)
[2022-02-23 15:56] VITALS: BP 139/87
[2022-02-23] MEDS: LevoFLOXacin 750 MG TABLET PO SCH (17:22)
[2022-02-23] MEDS: hydrOXYzine 50 MG TAB PO PRN (18:01)
[2022-02-23] MEDS: PROPRANOLOL 10 MG TAB PO PRN (18:01)
[2022-02-23] MEDS: ARIPiprazole 10 MG TAB PO SCH (20:04)
[2022-02-23] MEDS: MONTELUKAST 10 MG TAB PO SCH (20:04)
[2022-02-23] MEDS: LIDOCAINE 5% (LIDODERM) PATCH TD SCH (20:04)
[2022-02-23] MEDS: QUEtiapine FUMARATE 100 MG TAB PO SCH (20:04)
[2022-02-23] MEDS: DOXEPIN 25 MG CAP PO SCH (20:04)
[2022-02-23] MEDS: NORCO, ANEXSIA 5/325MG TABLET (HYDROcodone/ACETAMINOPHEN) PO PRN (20:05)
[2022-02-24 05:59] VITALS: BP 125/68
[2022-02-24] MEDS: CIPRODEX OTIC SUSP 7.5ML AD SCH ×2 (08:29→20:31)
[2022-02-24] MEDS: CETIRIZINE (ZyrTEC) 10 MG TAB PO SCH (08:29)
[2022-02-24] MEDS: BENZTROPINE 1 MG TAB PO SCH ×2 (08:30→20:30)
[2022-02-24] MEDS: OXcarbazepine 150 MG TAB PO SCH ×2 (08:30→20:29)
[2022-02-24] MEDS: GABAPENTIN 300 MG CAP PO SCH ×2 (08:30→20:30)
[2022-02-24] MEDS: OXcarbazepine 300 MG TAB PO SCH ×2 (08:30→20:29)
[2022-02-24] MEDS: DULoxetine 30MG CAPSULE (CYMBALTA) PO SCH ×2 (08:30→20:30)
[2022-02-24] MEDS: FERROUS SULFATE 325MG TAB PO SCH (08:31)
[2022-02-24] MEDS: tiZANidine 4 MG TAB PO PRN (08:31)
[2022-02-24] MEDS: PRAZOSIN 1 MG CAP PO SCH ×2 (08:31→20:31)
[2022-02-24] MEDS: **NOTE PATIENT COMMENT** MISC XX SCH (09:47)
[2022-02-24] MEDS: hydrOXYzine 50 MG TAB PO PRN ×2 (10:52→19:11)
[2022-02-24] MEDS: NEOSPORIN TOP OINT 15GM TOP SCH ×2 (10:53→22:02)
[2022-02-24] MEDS: NORCO, ANEXSIA 5/325MG TABLET (HYDROcodone/ACETAMINOPHEN) PO PRN ×2 (11:57→20:32)
[2022-02-24] MEDS: PROPRANOLOL 10 MG TAB PO PRN (14:38)
[2022-02-24 15:25] VITALS: BP 99/64
[2022-02-24] MEDS: LevoFLOXacin 750 MG TABLET PO SCH (19:12)
[2022-02-24] MEDS: LIDOCAINE 5% (LIDODERM) PATCH TD SCH (20:29)
[2022-02-24] MEDS: ARIPiprazole 10 MG TAB PO SCH (20:29)
[2022-02-24] MEDS: QUEtiapine FUMARATE 100 MG TAB PO SCH (20:30)
[2022-02-24] MEDS: MONTELUKAST 10 MG TAB PO SCH (20:30)
[2022-02-24] MEDS: DOXEPIN 25 MG CAP PO SCH (20:30)
[2022-02-25 06:19] VITALS: BP 132/72
[2022-02-25] MEDS: OXcarbazepine 300 MG TAB PO SCH ×2 (08:23→08:29)
[2022-02-25] MEDS: GABAPENTIN 300 MG CAP PO SCH ×2 (08:23→20:39)
[2022-02-25] MEDS: ACETAMINOPHEN TAB 650MG DOSE (2X325MG) PO PRN (08:24)
[2022-02-25] MEDS: CIPRODEX OTIC SUSP 7.5ML AD SCH ×2 (08:24→20:39)
[2022-02-25] MEDS: CETIRIZINE (ZyrTEC) 10 MG TAB PO SCH (08:25)
[2022-02-25] MEDS: BENZTROPINE 1 MG TAB PO SCH ×2 (08:26→20:39)
[2022-02-25] MEDS: DULoxetine 30MG CAPSULE (CYMBALTA) PO SCH ×2 (08:26→20:39)
[2022-02-25] MEDS: PRAZOSIN 1 MG CAP PO SCH ×2 (08:28→20:41)
[2022-02-25] MEDS: OXcarbazepine 150 MG TAB PO SCH ×2 (08:29→20:40)
[2022-02-25] MEDS: NEOSPORIN TOP OINT 15GM TOP SCH ×2 (08:30→20:39)
[2022-02-25] MEDS: FERROUS SULFATE 325MG TAB PO SCH (08:33)
[2022-02-25] MEDS: **NOTE PATIENT COMMENT** MISC XX SCH (09:00)
[2022-02-25] MEDS: NORCO, ANEXSIA 5/325MG TABLET (HYDROcodone/ACETAMINOPHEN) PO PRN ×2 (14:10→21:41)
[2022-02-25] MEDS: LevoFLOXacin 750 MG TABLET PO SCH (18:56)
[2022-02-25 19:14] VITALS: BP 134/84
[2022-02-25] MEDS: LIDOCAINE 5% (LIDODERM) PATCH TD SCH (20:38)
[2022-02-25] MEDS: MONTELUKAST 10 MG TAB PO SCH (20:39)
[2022-02-25] MEDS: QUEtiapine FUMARATE 100 MG TAB PO SCH (20:39)
[2022-02-25] MEDS: ARIPiprazole 10 MG TAB PO SCH (20:39)
[2022-02-25] MEDS: DOXEPIN 25 MG CAP PO SCH (20:40)
[2022-02-25] MEDS ORDERED: OXcarbazepine 300 MG TAB PO ONE (22:20)
[2022-02-26 07:04] VITALS: BP 126/64
[2022-02-26] MEDS: FERROUS SULFATE 325MG TAB PO SCH (08:05)
[2022-02-26] MEDS: CETIRIZINE (ZyrTEC) 10 MG TAB PO SCH (08:05)
[2022-02-26] MEDS: BENZTROPINE 1 MG TAB PO SCH ×2 (08:07→20:16)
[2022-02-26] MEDS: OXcarbazepine 150 MG TAB PO SCH ×2 (08:07→20:15)
[2022-02-26] MEDS: OXcarbazepine 300 MG TAB PO SCH ×2 (08:07→20:15)
[2022-02-26] MEDS: GABAPENTIN 300 MG CAP PO SCH ×2 (08:07→20:16)
[2022-02-26] MEDS: DULoxetine 30MG CAPSULE (CYMBALTA) PO SCH ×2 (08:07→20:15)
[2022-02-26] MEDS: PRAZOSIN 1 MG CAP PO SCH ×2 (08:07→20:16)
[2022-02-26] MEDS: **NOTE PATIENT COMMENT** MISC XX SCH (08:08)
[2022-02-26] MEDS: CIPRODEX OTIC SUSP 7.5ML AD SCH ×2 (08:22→20:17)
[2022-02-26] MEDS: NEOSPORIN TOP OINT 15GM TOP SCH (08:22)
[2022-02-26] MEDS: hydrOXYzine 50 MG TAB PO PRN (08:23)
[2022-02-26] MEDS ORDERED: QUEtiapine FUMARATE 50MG TAB PO ONE (09:00)
[2022-02-26] MEDS ORDERED: QUEtiapine FUMARATE 25 MG TAB PO ONE (15:30)
[2022-02-26] MEDS: LevoFLOXacin 750 MG TABLET PO SCH (17:19)
[2022-02-26 19:12] VITALS: BP 156/90
[2022-02-26] MEDS: ARIPiprazole 10 MG TAB PO SCH (20:14)
[2022-02-26] MEDS: DOXEPIN 25 MG CAP PO SCH (20:15)
[2022-02-26] MEDS: MONTELUKAST 10 MG TAB PO SCH (20:15)
[2022-02-26] MEDS: LIDOCAINE 5% (LIDODERM) PATCH TD SCH (20:17)
[2022-02-26] MEDS ORDERED: QUEtiapine FUMARATE 200 MG TAB PO SCH (21:00)
[2022-02-27 06:31] VITALS: BP 149/83
[2022-02-27] MEDS: OXcarbazepine 300 MG TAB PO SCH ×2 (08:29→20:35)
[2022-02-27] MEDS: DULoxetine 30MG CAPSULE (CYMBALTA) PO SCH ×2 (08:30→20:34)
[2022-02-27] MEDS: CETIRIZINE (ZyrTEC) 10 MG TAB PO SCH (08:30)
[2022-02-27] MEDS: PRAZOSIN 1 MG CAP PO SCH ×2 (08:30→20:36)
[2022-02-27] MEDS: OXcarbazepine 150 MG TAB PO SCH ×2 (08:30→20:35)
[2022-02-27] MEDS: GABAPENTIN 300 MG CAP PO SCH ×2 (08:30→20:34)
[2022-02-27] MEDS: BENZTROPINE 1 MG TAB PO SCH ×2 (08:30→20:34)
[2022-02-27] MEDS: FERROUS SULFATE 325MG TAB PO SCH (08:30)
[2022-02-27] MEDS: **NOTE PATIENT COMMENT** MISC XX SCH (08:33)
[2022-02-27] MEDS: CIPRODEX OTIC SUSP 7.5ML AD SCH (08:33)
[2022-02-27] MEDS: QUEtiapine FUMARATE 50MG TAB PO PRN ×2 (08:59→18:05)
[2022-02-27] MEDS: NORCO, ANEXSIA 5/325MG TABLET (HYDROcodone/ACETAMINOPHEN) PO PRN ×2 (12:37→20:35)
[2022-02-27] MEDS: LevoFLOXacin 750 MG TABLET PO SCH (17:00)
[2022-02-27 17:50] VITALS: BP 113/72
[2022-02-27] MEDS: DOXEPIN 25 MG CAP PO SCH (20:34)
[2022-02-27] MEDS: QUEtiapine FUMARATE 200 MG TAB PO SCH (20:34)
[2022-02-27] MEDS: ARIPiprazole 10 MG TAB PO SCH (20:34)
[2022-02-27] MEDS: tiZANidine 4 MG TAB PO PRN (20:36)
[2022-02-27] MEDS: LIDOCAINE 5% (LIDODERM) PATCH TD SCH (20:36)
[2022-02-27] MEDS: MONTELUKAST 10 MG TAB PO SCH (20:36)
[2022-02-28] VITALS (10 sets, daily range): BP systolic 115–151; BP diastolic 53–91
[2022-02-28] MEDS: OXcarbazepine 150 MG TAB PO SCH ×2 (08:44→22:20)
[2022-02-28] MEDS: OXcarbazepine 300 MG TAB PO SCH ×2 (08:44→22:19)
[2022-02-28] MEDS: DULoxetine 30MG CAPSULE (CYMBALTA) PO SCH ×2 (08:47→22:21)
[2022-02-28] MEDS: GABAPENTIN 300 MG CAP PO SCH ×2 (08:47→22:21)
[2022-02-28] MEDS: CETIRIZINE (ZyrTEC) 10 MG TAB PO SCH (08:47)
[2022-02-28] MEDS: FERROUS SULFATE 325MG TAB PO SCH (08:47)
[2022-02-28] MEDS: BENZTROPINE 1 MG TAB PO SCH ×2 (08:47→22:21)
[2022-02-28] MEDS: **NOTE PATIENT COMMENT** MISC XX SCH (08:47)
[2022-02-28] MEDS: PRAZOSIN 1 MG CAP PO SCH ×2 (08:47→22:24)
[2022-02-28] MEDS ORDERED: QUEtiapine FUMARATE 25 MG TAB PO ONE (10:20)
[2022-02-28] MEDS ORDERED: diphenhydrAMINE CREAM 30GM TOP PRN (11:15)
[2022-02-28] MEDS ORDERED: OLANZapine INTRAMUSCULAR 10MG VIAL IM STA (20:03)
[2022-02-28] MEDS: QUEtiapine FUMARATE 200 MG TAB PO SCH (22:20)
[2022-02-28] MEDS: DOXEPIN 25 MG CAP PO SCH (22:20)
[2022-02-28] MEDS: ARIPiprazole 10 MG TAB PO SCH (22:20)
[2022-02-28] MEDS: MONTELUKAST 10 MG TAB PO SCH (22:21)
[2022-02-28] MEDS: LIDOCAINE 5% (LIDODERM) PATCH TD SCH (22:25)
[2022-03-01 06:26] VITALS: BP 143/86
[2022-03-01] MEDS: GABAPENTIN 300 MG CAP PO SCH ×2 (09:26→21:34)
[2022-03-01] MEDS: PRAZOSIN 1 MG CAP PO SCH ×2 (09:26→21:33)
[2022-03-01] MEDS: DULoxetine 30MG CAPSULE (CYMBALTA) PO SCH ×2 (09:26→21:34)
[2022-03-01] MEDS: BENZTROPINE 1 MG TAB PO SCH ×2 (09:26→21:34)
[2022-03-01] MEDS: FERROUS SULFATE 325MG TAB PO SCH (09:26)
[2022-03-01] MEDS: CETIRIZINE (ZyrTEC) 10 MG TAB PO SCH (09:27)
[2022-03-01] MEDS: OXcarbazepine 300 MG TAB PO SCH ×2 (09:27→21:32)
[2022-03-01] MEDS: OXcarbazepine 150 MG TAB PO SCH ×2 (09:27→21:32)
[2022-03-01] MEDS: **NOTE PATIENT COMMENT** MISC XX SCH (09:28)
[2022-03-01] MEDS: QUEtiapine FUMARATE 50MG TAB PO PRN ×2 (13:23→18:09)
[2022-03-01] MEDS: NORCO, ANEXSIA 5/325MG TABLET (HYDROcodone/ACETAMINOPHEN) PO PRN (16:20)
[2022-03-01] MEDS: tiZANidine 4 MG TAB PO PRN (16:21)
[2022-03-01 18:00] VITALS: BP 123/75
[2022-03-01] MEDS: hydrOXYzine 50 MG TAB PO PRN (18:09)
[2022-03-01] MEDS: DICLOFENAC EPOLAMINE 1.3 % PATCH TOP SCH (21:30)
[2022-03-01] MEDS: DOXEPIN 25 MG CAP PO SCH (21:31)
[2022-03-01] MEDS: LIDOCAINE 5% (LIDODERM) PATCH TD SCH (21:31)
[2022-03-01] MEDS: QUEtiapine FUMARATE 200 MG TAB PO SCH (21:32)
[2022-03-01] MEDS: MONTELUKAST 10 MG TAB PO SCH (21:32)
[2022-03-01] MEDS: ARIPiprazole 10 MG TAB PO SCH (21:33)
[2022-03-02] MEDS: NORCO, ANEXSIA 5/325MG TABLET (HYDROcodone/ACETAMINOPHEN) PO PRN ×2 (01:25→10:24)
[2022-03-02] MEDS: QUEtiapine FUMARATE 50MG TAB PO PRN ×3 (05:56→22:39)
[2022-03-02 06:00] VITALS: BP 127/79
[2022-03-02 06:36] VITALS: BP 136/75
[2022-03-02] MEDS: GABAPENTIN 300 MG CAP PO SCH ×2 (08:31→21:55)
[2022-03-02] MEDS: OXcarbazepine 300 MG TAB PO SCH ×2 (08:31→21:55)
[2022-03-02] MEDS: DULoxetine 30MG CAPSULE (CYMBALTA) PO SCH ×2 (08:31→21:54)
[2022-03-02] MEDS: OXcarbazepine 150 MG TAB PO SCH ×2 (08:31→21:54)
[2022-03-02] MEDS: BENZTROPINE 1 MG TAB PO SCH ×2 (08:31→21:55)
[2022-03-02] MEDS: FERROUS SULFATE 325MG TAB PO SCH (08:32)
[2022-03-02] MEDS: PRAZOSIN 1 MG CAP PO SCH ×2 (08:32→21:55)
[2022-03-02] MEDS: DICLOFENAC EPOLAMINE 1.3 % PATCH TOP SCH ×2 (08:32→21:56)
[2022-03-02] MEDS: **NOTE PATIENT COMMENT** MISC XX SCH (09:00)
[2022-03-02] MEDS: CETIRIZINE (ZyrTEC) 10 MG TAB PO SCH (09:00)
[2022-03-02] MEDS: tiZANidine 4 MG TAB PO PRN ×2 (10:25→22:38)
[2022-03-02] MEDS: hydrOXYzine 50 MG TAB PO PRN (10:30)
[2022-03-02 18:00] VITALS: BP 124/86
[2022-03-02] MEDS: MONTELUKAST 10 MG TAB PO SCH (21:54)
[2022-03-02] MEDS: ARIPiprazole 10 MG TAB PO SCH (21:54)
[2022-03-02] MEDS: DOXEPIN 25 MG CAP PO SCH (21:55)
[2022-03-02] MEDS: QUEtiapine FUMARATE 200 MG TAB PO SCH (21:55)
[2022-03-02] MEDS: LIDOCAINE 5% (LIDODERM) PATCH TD SCH (21:56)
[2022-03-02] MEDS: ACETAMINOPHEN TAB 650MG DOSE (2X325MG) PO PRN (22:40)
[2022-03-03] MEDS: hydrOXYzine 50 MG TAB PO PRN ×2 (05:05→12:03)
[2022-03-03 06:37] VITALS: BP 146/76
[2022-03-03] MEDS: **NOTE PATIENT COMMENT** MISC XX SCH (08:22)
[2022-03-03] MEDS: DULoxetine 30MG CAPSULE (CYMBALTA) PO SCH ×2 (08:26→20:57)
[2022-03-03] MEDS: CETIRIZINE (ZyrTEC) 10 MG TAB PO SCH (08:27)
[2022-03-03] MEDS: OXcarbazepine 300 MG TAB PO SCH ×2 (08:27→21:01)
[2022-03-03] MEDS: PRAZOSIN 1 MG CAP PO SCH ×2 (08:27→21:00)
[2022-03-03] MEDS: OXcarbazepine 150 MG TAB PO SCH ×2 (08:27→21:00)
[2022-03-03] MEDS: BENZTROPINE 1 MG TAB PO SCH ×2 (08:27→20:57)
[2022-03-03] MEDS: GABAPENTIN 300 MG CAP PO SCH ×2 (08:27→21:00)
[2022-03-03] MEDS: DICLOFENAC EPOLAMINE 1.3 % PATCH TOP SCH ×2 (08:28→21:02)
[2022-03-03] MEDS: FERROUS SULFATE 325MG TAB PO SCH (08:28)
[2022-03-03] MEDS: NORCO, ANEXSIA 5/325MG TABLET (HYDROcodone/ACETAMINOPHEN) PO PRN (08:29)
[2022-03-03] MEDS: QUEtiapine FUMARATE 50MG TAB PO PRN (10:35)
[2022-03-03] MEDS: tiZANidine 4 MG TAB PO PRN (10:35)
[2022-03-03 18:00] VITALS: BP 124/83
[2022-03-03] MEDS ORDERED: diphenhydrAMINE 50MG/ML VIAL (J1200) IM STA (18:56)
[2022-03-03] MEDS ORDERED: chlorproMAZINE INJ 50MG/2ML AMP (J3230) IM STA (18:56)
[2022-03-03] MEDS ORDERED: chlorproMAZINE INJ 50MG/2ML AMP (J3230) As Ordered ONE (18:59)
[2022-03-03] MEDS ORDERED: diphenhydrAMINE 50MG/ML VIAL (J1200) As Ordered ONE (19:00)
[2022-03-03] MEDS: QUEtiapine FUMARATE 200 MG TAB PO SCH (20:57)
[2022-03-03] MEDS: DOXEPIN 25 MG CAP PO SCH (20:57)
[2022-03-03] MEDS: ARIPiprazole 10 MG TAB PO SCH (20:57)
[2022-03-03] MEDS: MONTELUKAST 10 MG TAB PO SCH (21:00)
[2022-03-03] MEDS: LIDOCAINE 5% (LIDODERM) PATCH TD SCH (21:01)
[2022-03-04] MEDS: QUEtiapine FUMARATE 50MG TAB PO PRN ×2 (03:34→13:50)
[2022-03-04] MEDS: IBUPROFEN 800 MG TAB PO PRN (03:37)
[2022-03-04 06:00] VITALS: BP 122/80
[2022-03-04] MEDS: ACETAMINOPHEN TAB 650MG DOSE (2X325MG) PO PRN (07:55)
[2022-03-04] MEDS: OXcarbazepine 300 MG TAB PO SCH ×2 (08:34→20:46)
[2022-03-04] MEDS: OXcarbazepine 150 MG TAB PO SCH ×2 (08:34→20:46)
[2022-03-04] MEDS: FERROUS SULFATE 325MG TAB PO SCH (08:34)
[2022-03-04] MEDS: GABAPENTIN 300 MG CAP PO SCH ×2 (08:35→20:45)
[2022-03-04] MEDS: DULoxetine 30MG CAPSULE (CYMBALTA) PO SCH ×2 (08:35→20:44)
[2022-03-04] MEDS: BENZTROPINE 1 MG TAB PO SCH ×2 (08:35→20:44)
[2022-03-04] MEDS: **NOTE PATIENT COMMENT** MISC XX SCH (08:35)
[2022-03-04] MEDS: CETIRIZINE (ZyrTEC) 10 MG TAB PO SCH (08:35)
[2022-03-04] MEDS: DICLOFENAC EPOLAMINE 1.3 % PATCH TOP SCH (08:35)
[2022-03-04] MEDS: PRAZOSIN 1 MG CAP PO SCH ×2 (08:35→20:44)
[2022-03-04 18:00] VITALS: BP 112/64
[2022-03-04] MEDS: LIDOCAINE 5% (LIDODERM) PATCH TD SCH (20:44)
[2022-03-04] MEDS: DOXEPIN 25 MG CAP PO SCH (20:45)
[2022-03-04] MEDS: MONTELUKAST 10 MG TAB PO SCH (20:45)
[2022-03-04] MEDS: QUEtiapine FUMARATE 200 MG TAB PO SCH (20:45)
[2022-03-04] MEDS: ARIPiprazole 10 MG TAB PO SCH (20:45)
[2022-03-04] MEDS: NORCO, ANEXSIA 5/325MG TABLET (HYDROcodone/ACETAMINOPHEN) PO PRN (21:09)
[2022-03-04] MEDS: hydrOXYzine 50 MG TAB PO PRN (21:30)
[2022-03-04] MEDS: PROPRANOLOL 10 MG TAB PO PRN (21:30)
[2022-03-05] VITALS (7 sets, daily range): BP systolic 124–142; BP diastolic 56–88
[2022-03-05] MEDS ORDERED: OLANZapine ORAL DISINTEGRATING TAB 5MG PO STA (07:46)
[2022-03-05] MEDS: QUEtiapine FUMARATE 50MG TAB PO PRN ×2 (07:50→14:51)
[2022-03-05] MEDS: ACETAMINOPHEN TAB 650MG DOSE (2X325MG) PO PRN (10:37)
[2022-03-05] MEDS: OXcarbazepine 300 MG TAB PO SCH ×2 (11:12→21:23)
[2022-03-05] MEDS: OXcarbazepine 150 MG TAB PO SCH ×2 (11:12→21:23)
[2022-03-05] MEDS: GABAPENTIN 300 MG CAP PO SCH ×2 (11:12→21:22)
[2022-03-05] MEDS: CETIRIZINE (ZyrTEC) 10 MG TAB PO SCH (11:13)
[2022-03-05] MEDS: BENZTROPINE 1 MG TAB PO SCH ×2 (11:13→21:22)
[2022-03-05] MEDS: PRAZOSIN 1 MG CAP PO SCH ×2 (11:13→21:22)
[2022-03-05] MEDS: DULoxetine 30MG CAPSULE (CYMBALTA) PO SCH ×2 (11:13→21:22)
[2022-03-05] MEDS: FERROUS SULFATE 325MG TAB PO SCH (11:13)
[2022-03-05] MEDS: **NOTE PATIENT COMMENT** MISC XX SCH (11:14)
[2022-03-05] MEDS: NORCO, ANEXSIA 5/325MG TABLET (HYDROcodone/ACETAMINOPHEN) PO PRN (20:34)
[2022-03-05] MEDS: LIDOCAINE 5% (LIDODERM) PATCH TD SCH (21:21)
[2022-03-05] MEDS: QUEtiapine FUMARATE 200 MG TAB PO SCH (21:21)
[2022-03-05] MEDS: MONTELUKAST 10 MG TAB PO SCH (21:21)
[2022-03-05] MEDS: ARIPiprazole 10 MG TAB PO SCH (21:21)
[2022-03-05] MEDS: DOXEPIN 25 MG CAP PO SCH (21:22)
[2022-03-06 06:15] VITALS: BP 147/62
[2022-03-06] MEDS: CETIRIZINE (ZyrTEC) 10 MG TAB PO SCH (08:13)
[2022-03-06] MEDS: FERROUS SULFATE 325MG TAB PO SCH (08:13)
[2022-03-06] MEDS: OXcarbazepine 300 MG TAB PO SCH ×2 (08:13→21:22)
[2022-03-06] MEDS: OXcarbazepine 150 MG TAB PO SCH ×2 (08:13→21:23)
[2022-03-06] MEDS: PRAZOSIN 1 MG CAP PO SCH ×2 (08:14→21:24)
[2022-03-06] MEDS: DULoxetine 30MG CAPSULE (CYMBALTA) PO SCH ×2 (08:14→21:22)
[2022-03-06] MEDS: GABAPENTIN 300 MG CAP PO SCH ×2 (08:14→21:24)
[2022-03-06] MEDS: BENZTROPINE 1 MG TAB PO SCH ×2 (08:14→21:23)
[2022-03-06] MEDS: **NOTE PATIENT COMMENT** MISC XX SCH (08:14)
[2022-03-06] MEDS: IBUPROFEN 800 MG TAB PO PRN (09:27)
[2022-03-06] MEDS: ACETAMINOPHEN TAB 650MG DOSE (2X325MG) PO PRN (15:30)
[2022-03-06 17:24] VITALS: BP 135/71
[2022-03-06] MEDS: hydrOXYzine 50 MG TAB PO PRN (19:30)
[2022-03-06] MEDS: LIDOCAINE 5% (LIDODERM) PATCH TD SCH (21:22)
[2022-03-06] MEDS: ARIPiprazole 10 MG TAB PO SCH (21:23)
[2022-03-06] MEDS: QUEtiapine FUMARATE 200 MG TAB PO SCH (21:23)
[2022-03-06] MEDS: DOXEPIN 25 MG CAP PO SCH (21:24)
[2022-03-06] MEDS: MONTELUKAST 10 MG TAB PO SCH (21:24)
[2022-03-07 06:54] VITALS: BP 143/92
[2022-03-07] MEDS: CETIRIZINE (ZyrTEC) 10 MG TAB PO SCH (08:31)
[2022-03-07] MEDS: FERROUS SULFATE 325MG TAB PO SCH (08:31)
[2022-03-07] MEDS: DULoxetine 30MG CAPSULE (CYMBALTA) PO SCH (08:31)
[2022-03-07] MEDS: BENZTROPINE 1 MG TAB PO SCH (08:31)
[2022-03-07 08:32] VITALS: BP 143/92
[2022-03-07] MEDS: OXcarbazepine 300 MG TAB PO SCH (08:32)
[2022-03-07] MEDS: OXcarbazepine 150 MG TAB PO SCH (08:32)
[2022-03-07] MEDS: GABAPENTIN 300 MG CAP PO SCH (08:32)
[2022-03-07] MEDS: PRAZOSIN 1 MG CAP PO SCH (08:32)
[2022-03-07] MEDS: **NOTE PATIENT COMMENT** MISC XX SCH (08:32)
[2022-03-07] MEDS: IBUPROFEN 800 MG TAB PO PRN (08:34)
[2022-03-07] MEDS ORDERED: TIZA10TA PO (11:48)
[2022-03-07] MEDS ORDERED: FERR325T3 PO (11:48)
[2022-03-07] MEDS ORDERED: LIDO5TD TD (11:48)
[2022-03-07] MEDS ORDERED: PRAZ2CAP PO (11:48)
[2022-03-07] MEDS ORDERED: MIRA1POW3 PO (11:48)
[2022-03-07] MEDS ORDERED: IBUP80TA PO (11:48)
[2022-03-07] MEDS ORDERED: ARIP1TAB43 PO (11:48)
[2022-03-07] MEDS ORDERED: MONT10TA97 PO (11:48)
[2022-03-07] MEDS ORDERED: ONDA-83 PO (11:48)
[2022-03-07] MEDS ORDERED: BENZ-52 PO (11:48)
[2022-03-07] MEDS ORDERED: QUET400T2 PO (11:48)
[2022-03-07] MEDS ORDERED: CETI10TA PO (11:48)
[2022-03-07] MEDS ORDERED: PROAAER10 INH (11:48)
[2022-03-07] MEDS ORDERED: GABA-282 PO (11:48)
[2022-03-07] MEDS ORDERED: OXCA600T8 PO (11:48)
[2022-03-07] MEDS ORDERED: QUET50TA4 PO (11:48)
[2022-03-07] MEDS ORDERED: DOXE25CA PO (11:48)
[2022-03-07] MEDS ORDERED: OXCA150T21 PO (11:48)
[2022-03-07] MEDS ORDERED: DOK100TA2 PO (11:48)
[2022-03-07] MEDS ORDERED: PROP10TA56 PO (11:48)
[2022-03-07] MEDS ORDERED: DULO30CA9 PO (11:48)
[2022-03-07] MEDS: ACETAMINOPHEN TAB 650MG DOSE (2X325MG) PO PRN ×2 (12:03→12:36)
== END 2022-03-07 13:07 | disposition home or self-care (01) | DRG 754 ==
LOC: M ED 16:30 → M ED INP 02-18 15:14 → M PSY 02-18 22:40
PROVIDERS: ADMIT Psychiatry & Neurology Psychiatry; ATTEND Psychiatry & Neurology Psychiatry
DX: F32.A Depression, unspecified (principal); Z78.1 Physical restraint status; R45.851 Suicidal ideations; F20.9 Schizophrenia, unspecified; F79 Unspecified intellectual disabilities; R45.850 Homicidal ideations; F17.200 Nicotine dependence, unspecified, uncomplicated; F12.90 Cannabis use, unspecified, uncomplicated; F10.10 Alcohol abuse, uncomplicated; F60.3 Borderline personality disorder; F84.0 Autistic disorder; Z91.410 Personal history of adult physical and sexual abuse; Z79.899 Other long term (current) drug therapy; Z91.018 Allergy to other foods; J45.909 Unspecified asthma, uncomplicated; E66.9 Obesity, unspecified; H66.91 Otitis media, unspecified, right ear

== ENCOUNTER → 2022-03-15 | Outpatient (REF) | payer OTHER, MEDICAID ==
[~2022-03-15] MED LIST changes: +CETI10TA PO; +DOK100TA2 PO; +DOXE25CA PO; +DULO30CA9 PO; +IBUP80TA PO; +MIRA3350 PO; +MIRT1TAB PO; +OXCA150T21 PO; +QUET400T2 PO; +QUET50TA4 PO; +TIZA10TA PO
== END ==
LOC: M SFHCPLAZ 13:08
PROVIDERS: ATTEND Family Medicine
DX: J06.9 Acute upper respiratory infection, unspecified (principal); R10.2 Pelvic and perineal pain

== ENCOUNTER → 2022-03-28 | Outpatient (CLI) | payer OTHER | LOC: M RAD 14:26 | PROVIDERS: ATTEND Family Medicine | DX: R10.2 Pelvic and perineal pain (principal) ==

== ENCOUNTER → 2022-04-22 | Outpatient (CLI) | payer OTHER ==
[~2022-04-22] MED LIST changes: +ETON68IM SC; -NEXP1IMP SC
== END ==
LOC: M PLALAB 15:13
PROVIDERS: ATTEND Psychiatry & Neurology Psychiatry
DX: F84.0 Autistic disorder (principal)

== ENCOUNTER 2022-06-26 20:09 | Inpatient (IN) | payer OTHER ==
[~2022-06-26] VITALS: Ht 149.9 cm; Wt 104.2 kg
[2022-06-26] MEDS ORDERED: NS 1,000 ML IV ONE (20:20)
[2022-06-26 20:51] LABS: BASO # 0.1 10^3/uL (0.0-0.2); BASO % 0.5 % (0.0-1.0); EOS # 0.3 10^3/uL (0.0-0.5); EOS % 2.8 % (0.0-3.0); HEMATOCRIT 34.4 % (36.0-47.0); HEMOGLOBIN 11.1 g/dl (12.0-15.5); LYMPH # 3.1 10^3/uL (1.5-5.0); LYMPH % 31.2 % (24.0-44.0); MEAN CORPUSCULAR HGB CONC 32.3 g/dl (32.0-36.5); MEAN CORPUSCULAR VOLUME 83.7 fl (80.0-96.0); MONO # 0.8 10^3/uL (0.0-0.8); MONO % 7.6 % (2.0-8.0); NEUTROPHILS # 5.7 10^3/uL (1.5-8.5); NEUTROPHILS % 57.5 % (36.0-66.0); PLATELET COUNT, AUTOMATED 217 10^3/uL (150-450); RED BLOOD COUNT 4.11 10^6/uL (4.00-5.40); WHITE BLOOD COUNT 9.9 10^3/uL (4.0-10.0)
[2022-06-26] MEDS ORDERED: CHARCOAL ACTIVATED LIQUID 25 GM/120 ML BTL PO ONE (21:00)
[2022-06-26 21:19] LABS: RSV AMPLIFICATION NEGATIVE (NEGATIVE)
[2022-06-26 21:53] LABS: AMPHETAMINES LEVEL URINE NEGATIVE (NEGATIVE); BARBITURATES URINE NEGATIVE (NEGATIVE); BENZODIAZEPINES URINE NEGATIVE (NEGATIVE); CANNABINOIDS URINE NEGATIVE (NEGATIVE); COCAINE METABOLITE URINE NEGATIVE (NEGATIVE); METHADONE URINE NEGATIVE (NEGATIVE); OPIATES URINE NEGATIVE (NEGATIVE); PHENCYCLIDINE URINE NEGATIVE (NEGATIVE)
[2022-06-26 22:00] LABS: HCG, SERUM QUALITATIVE NEGATIVE (NEGATIVE)
[2022-06-26 22:15] LABS: ACETAMINOPHEN LEVEL < 2.0 UG/ML (10.0-30.0); ALT/SGPT 19 U/L (12-78); BILIRUBIN,DIRECT < 0.1 MG/DL (0.0-0.2); BILIRUBIN,TOTAL 0.2 MG/DL (0.2-1.0); BLOOD UREA NITROGEN 11 MG/DL (7-18); CALCIUM LEVEL 8.4 MG/DL (8.5-10.1); CARBON DIOXIDE LEVEL 24 MEQ/L (21-32); CHLORIDE LEVEL 104 MEQ/L (98-107); ETHYL ALCOHOL (ETHANOL) 0.009 % (0.000-0.010); GLOMERULAR FILTRATION RATE > 60.0 (>60); GLUCOSE, FASTING 109 MG/DL (70-100); POTASSIUM SERUM 4.1 MEQ/L (3.5-5.1); SALICYLATE LEVEL < 1.7 MG/DL (5.0-30.0); SODIUM LEVEL 136 MEQ/L (136-145); TOTAL PROTEIN 6.3 GM/DL (6.4-8.2)
[2022-06-27] MEDS ORDERED: PROP10TA56 PO (02:39)
[2022-06-27] MEDS ORDERED: PROAAER10 INH (02:39)
[2022-06-27] MEDS ORDERED: DULO30CA9 PO (02:39)
[2022-06-27] MEDS ORDERED: OXCA600T8 PO (02:39)
[2022-06-27] MEDS ORDERED: DOXE25CA PO (02:39)
[2022-06-27] MEDS ORDERED: BENZ-52 PO (02:39)
[2022-06-27] MEDS ORDERED: IBUP80TA PO (02:39)
[2022-06-27] MEDS ORDERED: GABA600T4 PO (02:39)
[2022-06-27] MEDS ORDERED: ONDA-83 PO (02:39)
[2022-06-27] MEDS ORDERED: ARIP1TAB PO (02:39)
[2022-06-27] MEDS ORDERED: PRAZ2CAP PO (02:39)
[2022-06-27] MEDS ORDERED: TIZA4CAP PO (02:45)
[2022-06-27] MEDS ORDERED: QUET400T2 PO (02:45)
[2022-06-27] MEDS ORDERED: QUET50TA4 PO (02:45)
[2022-06-27] MEDS ORDERED: IBUP-1720 PO (02:45)
[2022-06-27] MEDS ORDERED: ACET1TAB55 PO (02:45)
[2022-06-27] MEDS ORDERED: HOME MED LIST COMPLETE! XX SCH (02:50)
[2022-06-27] MEDS ORDERED: QUEtiapine FUMARATE 200 MG TAB PO SCH (21:00)
[2022-06-27] MEDS ORDERED: ARIPiprazole 10 MG TAB PO SCH (21:00)
[2022-06-27] MEDS ORDERED: DOXEPIN 25 MG CAP PO SCH (21:00)
[2022-06-27] MEDS ORDERED: BENZTROPINE 1 MG TAB PO SCH (21:00)
[2022-06-27] MEDS ORDERED: PROPRANOLOL 10 MG TAB PO SCH (21:00)
[2022-06-27] MEDS ORDERED: QUEtiapine FUMARATE 50MG TAB PO SCH (21:00)
[2022-06-27] MEDS ORDERED: DULoxetine 30MG CAPSULE (CYMBALTA) PO SCH (21:00)
[2022-06-27] MEDS ORDERED: PRAZOSIN 1 MG CAP PO SCH (21:00)
[2022-06-27] MEDS ORDERED: GABAPENTIN 300 MG CAP PO SCH (21:00)
[2022-06-27] MEDS ORDERED: OXcarbazepine 300 MG TAB PO SCH (21:00)
[2022-06-28] MEDS ORDERED: MOM 30ML SUSPENSION UDC PO PRN (03:10)
[2022-06-28] MEDS ORDERED: traZODone 50 MG TAB PO PRN (03:10)
[2022-06-28] MEDS ORDERED: MAALOX 30 ML SUSP *UDC PO PRN (03:10)
[2022-06-28] MEDS ORDERED: ALBUTEROL 90 MCG/ACT 8GM HFA INHALER INH PRN (03:35)
[2022-06-28] MEDS ORDERED: ONDANSETRON 4MG TAB PO PRN (03:35)
[2022-06-28] MEDS: OXcarbazepine 300 MG TAB PO SCH ×2 (09:00→20:27)
[2022-06-28] MEDS: QUEtiapine FUMARATE 50MG TAB PO SCH ×2 (09:00→16:06)
[2022-06-28] MEDS: BENZTROPINE 1 MG TAB PO SCH ×2 (09:13→20:27)
[2022-06-28] MEDS: DULoxetine 30MG CAPSULE (CYMBALTA) PO SCH ×2 (09:14→20:27)
[2022-06-28] MEDS: PROPRANOLOL 10 MG TAB PO SCH ×2 (09:15→20:29)
[2022-06-28] MEDS: GABAPENTIN 300 MG CAP PO SCH ×2 (09:16→20:27)
[2022-06-28] MEDS: ACETAMINOPHEN TAB 650MG DOSE (2X325MG) PO PRN (10:44)
[2022-06-28 16:16] VITALS: BP 138/89
[2022-06-28] MEDS: ARIPiprazole 15 MG TAB (AbiLIFY) PO SCH (20:27)
[2022-06-28] MEDS: DOXEPIN 25 MG CAP PO SCH (20:28)
[2022-06-28] MEDS: PRAZOSIN 1 MG CAP PO SCH (20:29)
[2022-06-28] MEDS: QUEtiapine FUMARATE 200 MG TAB PO SCH (20:29)
[2022-06-28] MEDS: IBUPROFEN 800 MG TAB PO PRN (20:30)
[2022-06-28] MEDS ORDERED: ARIPiprazole 10 MG TAB PO SCH (21:00)
[2022-06-28] MEDS: tiZANidine 4 MG TAB PO PRN (21:42)
[2022-06-29 06:23] VITALS: BP 121/70
[2022-06-29] MEDS: BENZTROPINE 1 MG TAB PO SCH ×2 (08:17→21:15)
[2022-06-29] MEDS: GABAPENTIN 300 MG CAP PO SCH ×2 (08:17→21:15)
[2022-06-29] MEDS: ACETAMINOPHEN TAB 650MG DOSE (2X325MG) PO PRN (08:17)
[2022-06-29] MEDS: OXcarbazepine 300 MG TAB PO SCH ×2 (08:18→21:14)
[2022-06-29] MEDS: PROPRANOLOL 10 MG TAB PO SCH ×2 (08:18→21:16)
[2022-06-29] MEDS: DULoxetine 30MG CAPSULE (CYMBALTA) PO SCH ×2 (08:18→21:15)
[2022-06-29] MEDS: QUEtiapine FUMARATE 50MG TAB PO SCH ×2 (08:19→15:18)
[2022-06-29] MEDS: IBUPROFEN 800 MG TAB PO PRN (11:59)
[2022-06-29] MEDS ORDERED: NAPROXEN 250 MG TAB PO SCH (14:25)
[2022-06-29] MEDS ORDERED: KETOROLAC 30 MG/ML 1ML VIAL IV PRN (14:45)
[2022-06-29 16:14] VITALS: BP 136/89
[2022-06-29] MEDS: KETOROLAC 30 MG/ML 1ML VIAL IM PRN (18:19)
[2022-06-29] MEDS: QUEtiapine FUMARATE 200 MG TAB PO SCH (21:14)
[2022-06-29] MEDS: ARIPiprazole 15 MG TAB (AbiLIFY) PO SCH (21:14)
[2022-06-29] MEDS: PRAZOSIN 1 MG CAP PO SCH (21:15)
[2022-06-29] MEDS: DOXEPIN 25 MG CAP PO SCH (21:15)
[2022-06-30] VITALS (9 sets, daily range): BP systolic 117–139; BP diastolic 74–94
[2022-06-30] MEDS: KETOROLAC 30 MG/ML 1ML VIAL IM PRN ×2 (05:33→16:09)
[2022-06-30] MEDS: GABAPENTIN 300 MG CAP PO SCH ×3 (08:35→23:41)
[2022-06-30] MEDS: QUEtiapine FUMARATE 50MG TAB PO SCH ×2 (08:35→15:12)
[2022-06-30] MEDS: OXcarbazepine 300 MG TAB PO SCH ×3 (08:35→23:42)
[2022-06-30] MEDS: PROPRANOLOL 10 MG TAB PO SCH ×3 (08:35→23:42)
[2022-06-30] MEDS: DULoxetine 30MG CAPSULE (CYMBALTA) PO SCH ×3 (08:37→23:42)
[2022-06-30] MEDS: BENZTROPINE 1 MG TAB PO SCH ×3 (08:38→23:41)
[2022-06-30] MEDS: DOXEPIN 25 MG CAP PO SCH ×2 (21:00→23:42)
[2022-06-30] MEDS: QUEtiapine FUMARATE 200 MG TAB PO SCH ×2 (21:00→23:42)
[2022-06-30] MEDS: ARIPiprazole 15 MG TAB (AbiLIFY) PO SCH ×2 (21:00→23:42)
[2022-06-30] MEDS: PRAZOSIN 1 MG CAP PO SCH ×2 (21:00→23:42)
[2022-06-30] MEDS ORDERED: LORazepam 2 MG/ML VIAL IM STA (21:11)
[2022-06-30] MEDS ORDERED: chlorproMAZINE INJ 50MG/2ML AMP (J3230) IM STA ×2 (21:16→23:07)
[2022-07-01] MEDS: KETOROLAC 30 MG/ML 1ML VIAL IM PRN ×2 (10:24→22:49)
[2022-07-01] MEDS: BENZTROPINE 1 MG TAB PO SCH ×2 (10:28→20:50)
[2022-07-01] MEDS: PROPRANOLOL 10 MG TAB PO SCH ×2 (10:28→20:50)
[2022-07-01] MEDS: GABAPENTIN 300 MG CAP PO SCH ×2 (10:28→20:50)
[2022-07-01] MEDS: DULoxetine 30MG CAPSULE (CYMBALTA) PO SCH ×2 (10:28→20:50)
[2022-07-01] MEDS: QUEtiapine FUMARATE 50MG TAB PO SCH ×2 (10:28→14:29)
[2022-07-01] MEDS: OXcarbazepine 300 MG TAB PO SCH ×2 (10:31→20:50)
[2022-07-01 17:31] VITALS: BP 154/80
[2022-07-01] MEDS: PRAZOSIN 1 MG CAP PO SCH (20:49)
[2022-07-01] MEDS: ARIPiprazole 15 MG TAB (AbiLIFY) PO SCH (20:49)
[2022-07-01] MEDS: QUEtiapine FUMARATE 200 MG TAB PO SCH (20:50)
[2022-07-01] MEDS: DOXEPIN 25 MG CAP PO SCH (20:50)
[2022-07-02] MEDS ORDERED: diphenhydrAMINE 50MG CAP PO ONE
[2022-07-02 03:27] VITALS: BP 133/93
[2022-07-02] MEDS: FLUTICASONE PROP 0.05% NASAL SPRAY 16 GM (FLONASE) NARES SCH ×2 (04:00→21:19)
[2022-07-02 06:27] VITALS: BP 108/73
[2022-07-02] MEDS: OXcarbazepine 300 MG TAB PO SCH ×2 (08:30→21:20)
[2022-07-02] MEDS: QUEtiapine FUMARATE 50MG TAB PO SCH ×2 (08:30→14:42)
[2022-07-02] MEDS: DULoxetine 30MG CAPSULE (CYMBALTA) PO SCH ×2 (08:31→21:20)
[2022-07-02] MEDS: BENZTROPINE 1 MG TAB PO SCH ×2 (08:31→21:20)
[2022-07-02] MEDS: GABAPENTIN 300 MG CAP PO SCH ×2 (08:31→21:20)
[2022-07-02] MEDS: PROPRANOLOL 10 MG TAB PO SCH ×2 (08:34→21:22)
[2022-07-02] MEDS: KETOROLAC 30 MG/ML 1ML VIAL IM PRN ×2 (09:22→21:57)
[2022-07-02 18:11] VITALS: BP 124/87
[2022-07-02] MEDS: ACETAMINOPHEN TAB 650MG DOSE (2X325MG) PO PRN (19:01)
[2022-07-02] MEDS: QUEtiapine FUMARATE 200 MG TAB PO SCH (21:20)
[2022-07-02] MEDS: DOXEPIN 25 MG CAP PO SCH (21:20)
[2022-07-02] MEDS: ARIPiprazole 15 MG TAB (AbiLIFY) PO SCH (21:20)
[2022-07-02] MEDS: PRAZOSIN 1 MG CAP PO SCH (21:22)
[2022-07-03] MEDS: ACETAMINOPHEN TAB 650MG DOSE (2X325MG) PO PRN (03:24)
[2022-07-03 06:53] VITALS: BP 134/85
[2022-07-03] MEDS: BENZTROPINE 1 MG TAB PO SCH ×2 (09:44→22:25)
[2022-07-03] MEDS: FLUTICASONE PROP 0.05% NASAL SPRAY 16 GM (FLONASE) NARES SCH ×2 (09:44→21:00)
[2022-07-03] MEDS: OXcarbazepine 300 MG TAB PO SCH ×2 (09:45→22:25)
[2022-07-03] MEDS: QUEtiapine FUMARATE 50MG TAB PO SCH ×2 (09:45→15:59)
[2022-07-03] MEDS: DULoxetine 30MG CAPSULE (CYMBALTA) PO SCH ×2 (09:47→22:25)
[2022-07-03] MEDS: PROPRANOLOL 10 MG TAB PO SCH ×2 (09:47→22:26)
[2022-07-03] MEDS: GABAPENTIN 300 MG CAP PO SCH ×2 (09:47→22:25)
[2022-07-03] MEDS: KETOROLAC 30 MG/ML 1ML VIAL IM PRN ×2 (12:18→22:42)
[2022-07-03 18:14] VITALS: BP 124/67
[2022-07-03] MEDS: QUEtiapine FUMARATE 200 MG TAB PO SCH (22:25)
[2022-07-03] MEDS: PRAZOSIN 1 MG CAP PO SCH (22:25)
[2022-07-03] MEDS: ARIPiprazole 15 MG TAB (AbiLIFY) PO SCH (22:26)
[2022-07-03] MEDS: DOXEPIN 25 MG CAP PO SCH (22:26)
[2022-07-04 06:23] VITALS: BP 143/81
[2022-07-04] MEDS: FLUTICASONE PROP 0.05% NASAL SPRAY 16 GM (FLONASE) NARES SCH ×2 (09:00→20:50)
[2022-07-04] MEDS: PROPRANOLOL 10 MG TAB PO SCH ×2 (09:09→20:51)
[2022-07-04] MEDS: OXcarbazepine 300 MG TAB PO SCH ×2 (09:09→20:51)
[2022-07-04] MEDS: GABAPENTIN 300 MG CAP PO SCH ×2 (09:09→20:51)
[2022-07-04] MEDS: BENZTROPINE 1 MG TAB PO SCH ×2 (09:09→20:51)
[2022-07-04] MEDS: QUEtiapine FUMARATE 50MG TAB PO SCH ×2 (09:09→14:57)
[2022-07-04] MEDS: DULoxetine 30MG CAPSULE (CYMBALTA) PO SCH ×2 (09:09→20:51)
[2022-07-04] MEDS: ACETAMINOPHEN TAB 650MG DOSE (2X325MG) PO PRN ×2 (11:25→22:39)
[2022-07-04] MEDS: KETOROLAC 30 MG/ML 1ML VIAL IM PRN (13:32)
[2022-07-04 18:09] VITALS: BP 135/64
[2022-07-04] MEDS: QUEtiapine FUMARATE 200 MG TAB PO SCH (20:50)
[2022-07-04] MEDS: DOXEPIN 25 MG CAP PO SCH (20:50)
[2022-07-04] MEDS: PRAZOSIN 1 MG CAP PO SCH (20:50)
[2022-07-04] MEDS: ARIPiprazole 15 MG TAB (AbiLIFY) PO SCH (20:51)
[2022-07-05 06:30] VITALS: BP 114/76
[2022-07-05] MEDS: FLUTICASONE PROP 0.05% NASAL SPRAY 16 GM (FLONASE) NARES SCH ×2 (08:51→21:53)
[2022-07-05] MEDS: DULoxetine 30MG CAPSULE (CYMBALTA) PO SCH ×2 (08:52→21:52)
[2022-07-05] MEDS: BENZTROPINE 1 MG TAB PO SCH ×2 (08:52→21:52)
[2022-07-05] MEDS: PROPRANOLOL 10 MG TAB PO SCH ×2 (08:52→21:52)
[2022-07-05] MEDS: QUEtiapine FUMARATE 50MG TAB PO SCH ×2 (08:52→15:48)
[2022-07-05] MEDS: GABAPENTIN 300 MG CAP PO SCH ×2 (08:52→21:52)
[2022-07-05] MEDS: OXcarbazepine 300 MG TAB PO SCH ×2 (08:53→21:52)
[2022-07-05] MEDS: LACTOBACILLUS ACIDOPHILUS CAP (BACID) PO SCH (09:00)
[2022-07-05] MEDS: ACETAMINOPHEN TAB 650MG DOSE (2X325MG) PO PRN (10:18)
[2022-07-05 14:19] LABS: BASO % 0.3 % (0.0-1.0); EOS # 0.5 10^3/uL (0.0-0.5); EOS % 4.8 % (0.0-3.0); HEMATOCRIT 29.6 % (36.0-47.0); HEMOGLOBIN 9.7 g/dl (12.0-15.5); LYMPH # 2.9 10^3/uL (1.5-5.0); LYMPH % 29.5 % (24.0-44.0); MEAN CORPUSCULAR HEMOGLOBIN 27.5 pg (27.0-33.0); MEAN CORPUSCULAR HGB CONC 32.8 g/dl (32.0-36.5); MEAN CORPUSCULAR VOLUME 83.9 fl (80.0-96.0); MONO # 0.7 10^3/uL (0.0-0.8); MONO % 6.9 % (2.0-8.0); NEUTROPHILS # 5.6 10^3/uL (1.5-8.5); NEUTROPHILS % 58.1 % (36.0-66.0); PLATELET COUNT, AUTOMATED 261 10^3/uL (150-450); RED BLOOD COUNT 3.53 10^6/uL (4.00-5.40); WHITE BLOOD COUNT 9.7 10^3/uL (4.0-10.0)
[2022-07-05 14:48] LABS: BLOOD UREA NITROGEN 8 MG/DL (7-18); CALCIUM LEVEL 8.5 MG/DL (8.5-10.1); CARBON DIOXIDE LEVEL 26 MEQ/L (21-32); CHLORIDE LEVEL 101 MEQ/L (98-107); CREATININE FOR GFR 0.75 MG/DL (0.55-1.30); GLOMERULAR FILTRATION RATE > 60.0 (>60); GLUCOSE, FASTING 102 MG/DL (70-100); POTASSIUM SERUM 3.8 MEQ/L (3.5-5.1); SODIUM LEVEL 132 MEQ/L (136-145)
[2022-07-05] MEDS ORDERED: predniSONE 20 MG TAB PO ONE (15:20)
[2022-07-05] MEDS: ALBUTEROL 90 MCG/ACT 8GM HFA INHALER INH SCH ×2 (16:16→21:54)
[2022-07-05 18:24] VITALS: BP 122/78
[2022-07-05] MEDS ORDERED: chlorproMAZINE INJ 50MG/2ML AMP (J3230) IM STA (20:16)
[2022-07-05] MEDS ORDERED: ARIPiprazole 15 MG TAB (AbiLIFY) PO SCH (21:00)
[2022-07-05 21:45] VITALS: BP 113/69
[2022-07-05] MEDS: AUGMENTIN 875 MG TAB PO SCH (21:51)
[2022-07-05] MEDS: PRAZOSIN 1 MG CAP PO SCH (21:52)
[2022-07-05] MEDS: DOXEPIN 25 MG CAP PO SCH (21:52)
[2022-07-05] MEDS: QUEtiapine FUMARATE 200 MG TAB PO SCH (21:52)
[2022-07-05] MEDS: ARIPiprazole 10 MG TAB PO SCH (22:02)
[2022-07-05] MEDS ORDERED: KETOROLAC TROMETHAMINE 10 MG TAB PO SCH (22:30)
[2022-07-05] MEDS ORDERED: KETOROLAC TROMETHAMINE 10 MG TAB PO PRN (23:25)
[2022-07-06] MEDS: CEPACOL LOZENGE PO PRN (04:17)
[2022-07-06 06:40] VITALS: BP 137/74
[2022-07-06] MEDS: FLUTICASONE PROP 0.05% NASAL SPRAY 16 GM (FLONASE) NARES SCH ×2 (09:00→20:41)
[2022-07-06] MEDS: predniSONE 20 MG TAB PO SCH (09:00)
[2022-07-06] MEDS: DULoxetine 30MG CAPSULE (CYMBALTA) PO SCH ×2 (09:19→20:41)
[2022-07-06] MEDS: PROPRANOLOL 10 MG TAB PO SCH ×2 (09:19→20:39)
[2022-07-06] MEDS: AUGMENTIN 875 MG TAB PO SCH ×2 (09:19→20:41)
[2022-07-06] MEDS: ALBUTEROL 90 MCG/ACT 8GM HFA INHALER INH SCH ×4 (09:19→20:40)
[2022-07-06] MEDS: OXcarbazepine 300 MG TAB PO SCH ×2 (09:19→20:40)
[2022-07-06] MEDS: BENZTROPINE 1 MG TAB PO SCH ×2 (09:19→20:41)
[2022-07-06] MEDS: LACTOBACILLUS ACIDOPHILUS CAP (BACID) PO SCH (09:19)
[2022-07-06] MEDS: QUEtiapine FUMARATE 50MG TAB PO SCH ×2 (09:20→15:50)
[2022-07-06] MEDS: GABAPENTIN 300 MG CAP PO SCH ×2 (09:20→20:40)
[2022-07-06] MEDS: ACETAMINOPHEN TAB 650MG DOSE (2X325MG) PO PRN (11:37)
[2022-07-06] MEDS: IBUPROFEN 600MG TAB PO PRN (18:17)
[2022-07-06 18:20] VITALS: BP 142/78
[2022-07-06] MEDS: QUEtiapine FUMARATE 200 MG TAB PO SCH (20:40)
[2022-07-06] MEDS: DOXEPIN 25 MG CAP PO SCH (20:40)
[2022-07-06] MEDS: PRAZOSIN 1 MG CAP PO SCH (20:41)
[2022-07-06] MEDS: ARIPiprazole 10 MG TAB PO SCH (20:41)
[2022-07-07 07:00] VITALS: BP 125/70
[2022-07-07] MEDS: ALBUTEROL 90 MCG/ACT 8GM HFA INHALER INH SCH ×4 (08:00→20:29)
[2022-07-07] MEDS: predniSONE 20 MG TAB PO SCH (09:50)
[2022-07-07] MEDS: BENZTROPINE 1 MG TAB PO SCH ×2 (09:50→20:29)
[2022-07-07] MEDS: AUGMENTIN 875 MG TAB PO SCH ×2 (09:50→20:29)
[2022-07-07] MEDS: FLUTICASONE PROP 0.05% NASAL SPRAY 16 GM (FLONASE) NARES SCH ×2 (09:50→20:32)
[2022-07-07] MEDS: QUEtiapine FUMARATE 50MG TAB PO SCH ×2 (09:51→14:28)
[2022-07-07] MEDS: DULoxetine 30MG CAPSULE (CYMBALTA) PO SCH ×2 (09:51→20:29)
[2022-07-07] MEDS: GABAPENTIN 300 MG CAP PO SCH ×2 (09:51→20:30)
[2022-07-07] MEDS: PROPRANOLOL 10 MG TAB PO SCH ×2 (09:51→20:32)
[2022-07-07] MEDS: OXcarbazepine 300 MG TAB PO SCH ×2 (09:52→20:30)
[2022-07-07] MEDS: LACTOBACILLUS ACIDOPHILUS CAP (BACID) PO SCH (09:54)
[2022-07-07] MEDS: tiZANidine 4 MG TAB PO PRN (09:55)
[2022-07-07] MEDS: IBUPROFEN 600MG TAB PO PRN ×2 (10:46→20:30)
[2022-07-07] MEDS: ACETAMINOPHEN TAB 650MG DOSE (2X325MG) PO PRN (17:05)
[2022-07-07 18:21] VITALS: BP 131/78
[2022-07-07] MEDS: DOXEPIN 25 MG CAP PO SCH (20:29)
[2022-07-07] MEDS: ARIPiprazole 10 MG TAB PO SCH (20:29)
[2022-07-07] MEDS: QUEtiapine FUMARATE 200 MG TAB PO SCH (20:29)
[2022-07-07] MEDS: PRAZOSIN 1 MG CAP PO SCH (20:32)
[2022-07-08] MEDS: CEPACOL LOZENGE PO PRN (04:31)
[2022-07-08 06:22] VITALS: BP 127/62
[2022-07-08] MEDS: GABAPENTIN 300 MG CAP PO SCH (08:07)
[2022-07-08] MEDS: LACTOBACILLUS ACIDOPHILUS CAP (BACID) PO SCH (08:07)
[2022-07-08] MEDS: ALBUTEROL 90 MCG/ACT 8GM HFA INHALER INH SCH ×2 (08:07→12:04)
[2022-07-08] MEDS: OXcarbazepine 300 MG TAB PO SCH (08:07)
[2022-07-08] MEDS: FLUTICASONE PROP 0.05% NASAL SPRAY 16 GM (FLONASE) NARES SCH (08:07)
[2022-07-08] MEDS: predniSONE 20 MG TAB PO SCH (08:08)
[2022-07-08] MEDS: BENZTROPINE 1 MG TAB PO SCH (08:08)
[2022-07-08] MEDS: DULoxetine 30MG CAPSULE (CYMBALTA) PO SCH (08:08)
[2022-07-08 08:09] VITALS: BP 132/82
[2022-07-08] MEDS: PROPRANOLOL 10 MG TAB PO SCH (08:09)
[2022-07-08] MEDS: AUGMENTIN 875 MG TAB PO SCH (08:09)
[2022-07-08] MEDS: QUEtiapine FUMARATE 50MG TAB PO SCH (08:12)
[2022-07-08] MEDS: IBUPROFEN 600MG TAB PO PRN (10:55)
[2022-07-08] MEDS ORDERED: QUET50TA4 PO ×2 (12:27)
[2022-07-08] MEDS ORDERED: AMOX875T2 PO (13:40)
[2022-07-08] MEDS ORDERED: PRED20TA PO (13:40)
== END 2022-07-08 14:19 | disposition home or self-care (01) | DRG 754 ==
LOC: M ED 20:09 → M ED INP 06-28 03:06 → M PSY 06-28 09:30
PROVIDERS: ADMIT Psychiatry & Neurology Psychiatry; ATTEND Psychiatry & Neurology Psychiatry
DX: F32.A Depression, unspecified (principal); F17.200 Nicotine dependence, unspecified, uncomplicated; F12.90 Cannabis use, unspecified, uncomplicated; F10.10 Alcohol abuse, uncomplicated; F79 Unspecified intellectual disabilities; F60.3 Borderline personality disorder; F84.0 Autistic disorder; F20.9 Schizophrenia, unspecified; Z79.899 Other long term (current) drug therapy; Z91.018 Allergy to other foods; Z88.8 Allergy status to other drugs, medicaments and biological substances; J45.901 Unspecified asthma with (acute) exacerbation; Z62.810 Personal history of physical and sexual abuse in childhood; M79.7 Fibromyalgia; Z78.1 Physical restraint status; J20.9 Acute bronchitis, unspecified; M25.461 Effusion, right knee

== ENCOUNTER 2022-09-07 20:13 | Inpatient (IN) | payer OTHER, MEDICAID ==
[~2022-09-07] VITALS: Ht 149.9 cm; Wt 108.0 kg
[~2022-09-07 20:13] MED LIST changes: +ACET1TAB55 PO; +ARIP1TAB PO; +GABA600T4 PO; +IBUP-1720 PO; +TIZA4CAP PO
[2022-09-07] MEDS ORDERED: ZOLP12.518 PO (21:49)
[2022-09-07] MEDS ORDERED: QUET400T42 PO (21:49)
[2022-09-07] MEDS ORDERED: GABA-282 PO (21:49)
[2022-09-07] MEDS ORDERED: QUET200T79 PO (21:49)
[2022-09-07] MEDS ORDERED: HYDR-3363 PO (21:50)
[2022-09-07] MEDS ORDERED: med rec comment (21:50)
[2022-09-07] MEDS ORDERED: HOME MED LIST COMPLETE! XX SCH (21:55)
[2022-09-08] MEDS ORDERED: PROPRANOLOL 10 MG TAB PO PRN (08:55)
[2022-09-08] MEDS ORDERED: zolPIDEM TARTRATE 5 MG TAB PO PRN (08:55)
[2022-09-08] MEDS: QUEtiapine FUMARATE **XR** 200MG TABLET PO SCH (09:19)
[2022-09-08] MEDS: GABAPENTIN 300 MG CAP PO SCH ×2 (09:19→22:43)
[2022-09-08] MEDS: OXcarbazepine 300 MG TAB PO SCH ×2 (09:23→22:44)
[2022-09-08] MEDS ORDERED: ONDANSETRON 4MG ORAL DISINTEGRATING TAB PO ONE (12:50)
[2022-09-08] MEDS ORDERED: QUEtiapine FUMARATE **XR** 200MG TABLET PO SCH (21:00)
[2022-09-08] MEDS ORDERED: PRAZOSIN 1 MG CAP PO SCH (21:00)
[2022-09-09] MEDS: GABAPENTIN 300 MG CAP PO SCH ×2 (10:12→22:05)
[2022-09-09] MEDS: QUEtiapine FUMARATE **XR** 200MG TABLET PO SCH ×2 (10:12→22:06)
[2022-09-09] MEDS: OXcarbazepine 300 MG TAB PO SCH ×2 (10:13→22:06)
[2022-09-09] MEDS ORDERED: PROPRANOLOL 10 MG TAB PO PRN (21:35)
[2022-09-09] MEDS ORDERED: MOM 30ML SUSPENSION UDC PO PRN (21:45)
[2022-09-09] MEDS ORDERED: MAALOX 30 ML SUSP *UDC PO PRN (21:45)
[2022-09-09] MEDS ORDERED: traZODone 50 MG TAB PO PRN (21:45)
[2022-09-09] MEDS ORDERED: ACETAMINOPHEN TAB 650MG DOSE (2X325MG) PO PRN (21:45)
[2022-09-09] MEDS: DULoxetine 30MG CAPSULE (CYMBALTA) PO SCH (22:05)
[2022-09-09] MEDS: PRAZOSIN 1 MG CAP PO SCH (22:05)
[2022-09-09 23:08] LABS: RSV AMPLIFICATION NEGATIVE (NEGATIVE)
[2022-09-10 03:10] VITALS: BP 136/69
[2022-09-10] MEDS: DULoxetine 30MG CAPSULE (CYMBALTA) PO SCH ×2 (09:31→21:44)
[2022-09-10] MEDS: OXcarbazepine 300 MG TAB PO SCH ×2 (09:31→21:44)
[2022-09-10] MEDS: GABAPENTIN 300 MG CAP PO SCH ×2 (09:32→21:44)
[2022-09-10] MEDS ORDERED: NICOTINE 14 MG/24 HR TRANSDERMAL TD PRN (11:20)
[2022-09-10] MEDS: QUEtiapine FUMARATE **XR** 200MG TABLET PO SCH ×2 (12:00→21:44)
[2022-09-10] MEDS: PRAZOSIN 1 MG CAP PO SCH (21:45)
[2022-09-11] MEDS: GABAPENTIN 300 MG CAP PO SCH ×2 (08:50→20:16)
[2022-09-11] MEDS: DULoxetine 30MG CAPSULE (CYMBALTA) PO SCH ×2 (08:50→20:17)
[2022-09-11] MEDS: OXcarbazepine 300 MG TAB PO SCH ×2 (08:50→20:16)
[2022-09-11] MEDS: QUEtiapine FUMARATE **XR** 200MG TABLET PO SCH ×2 (08:50→20:16)
[2022-09-11 09:28] LABS: CHOLESTEROL RISK RATIO 2.8 (<5); HDL CHOLESTEROL 62.1 MG/DL (>40); LDL CHOLESTEROL 93.9 MG/DL (<100)
[2022-09-11] MEDS ORDERED: OLANZapine 2.5MG TABLET PO PRN (13:25)
[2022-09-11] MEDS ORDERED: OLANZapine 5 MG TAB PO ONE (15:15)
[2022-09-11] MEDS: PRAZOSIN 1 MG CAP PO SCH (20:17)
[2022-09-12 06:26] VITALS: BP 138/90
[2022-09-12] MEDS: OXcarbazepine 300 MG TAB PO SCH ×2 (09:52→21:34)
[2022-09-12] MEDS: QUEtiapine FUMARATE **XR** 200MG TABLET PO SCH ×2 (09:52→21:33)
[2022-09-12] MEDS: DULoxetine 30MG CAPSULE (CYMBALTA) PO SCH ×2 (09:52→21:34)
[2022-09-12] MEDS: GABAPENTIN 300 MG CAP PO SCH ×2 (09:52→21:34)
[2022-09-12] MEDS: DICLOFENAC EPOLAMINE 1.3 % PATCH TOP SCH ×2 (12:54→21:36)
[2022-09-12] MEDS: guaiFENesin ER 600 MG TAB PO SCH ×2 (12:56→21:34)
[2022-09-12] MEDS: OLANZapine ORAL DISINTEGRATING TAB 5MG PO PRN (14:09)
[2022-09-12 18:14] VITALS: BP 167/89
[2022-09-12] MEDS: PRAZOSIN 1 MG CAP PO SCH (21:34)
[2022-09-13 06:29] VITALS: BP 103/71
[2022-09-13] MEDS: OXcarbazepine 300 MG TAB PO SCH ×2 (08:34→21:44)
[2022-09-13] MEDS: guaiFENesin ER 600 MG TAB PO SCH ×2 (08:35→21:43)
[2022-09-13] MEDS: DULoxetine 30MG CAPSULE (CYMBALTA) PO SCH ×2 (08:35→21:43)
[2022-09-13] MEDS: GABAPENTIN 300 MG CAP PO SCH ×2 (08:35→21:43)
[2022-09-13] MEDS: QUEtiapine FUMARATE **XR** 200MG TABLET PO SCH ×2 (08:35→21:43)
[2022-09-13] MEDS: DICLOFENAC EPOLAMINE 1.3 % PATCH TOP SCH ×2 (08:36→21:44)
[2022-09-13 18:09] VITALS: BP 146/79
[2022-09-13] MEDS: PRAZOSIN 1 MG CAP PO SCH (21:44)
[2022-09-14 06:00] VITALS: BP 148/77
[2022-09-14] MEDS: DICLOFENAC EPOLAMINE 1.3 % PATCH TOP SCH ×2 (08:02→21:00)
[2022-09-14] MEDS: QUEtiapine FUMARATE **XR** 200MG TABLET PO SCH ×2 (08:02→21:00)
[2022-09-14] MEDS: GABAPENTIN 300 MG CAP PO SCH ×2 (08:03→21:00)
[2022-09-14] MEDS: guaiFENesin ER 600 MG TAB PO SCH ×2 (08:03→21:00)
[2022-09-14] MEDS: OXcarbazepine 300 MG TAB PO SCH ×2 (08:03→21:00)
[2022-09-14] MEDS: DULoxetine 30MG CAPSULE (CYMBALTA) PO SCH ×2 (08:03→21:00)
[2022-09-14] MEDS: OLANZapine ORAL DISINTEGRATING TAB 5MG PO PRN (10:53)
[2022-09-14 18:15] VITALS: BP 128/83
[2022-09-14] MEDS ORDERED: diphenhydrAMINE 50MG/ML VIAL IM STA (20:42)
[2022-09-14] MEDS ORDERED: OLANZapine INTRAMUSCULAR 10MG VIAL IM STA (20:52)
[2022-09-14] MEDS: PRAZOSIN 1 MG CAP PO SCH (21:00)
[2022-09-15] MEDS: DICLOFENAC EPOLAMINE 1.3 % PATCH TOP SCH ×3 (00:12→20:34)
[2022-09-15] MEDS: PRAZOSIN 1 MG CAP PO SCH ×2 (00:13→20:34)
[2022-09-15] MEDS: DULoxetine 30MG CAPSULE (CYMBALTA) PO SCH ×3 (00:13→20:33)
[2022-09-15] MEDS: guaiFENesin ER 600 MG TAB PO SCH ×3 (00:13→20:33)
[2022-09-15] MEDS: QUEtiapine FUMARATE **XR** 200MG TABLET PO SCH ×3 (00:13→20:34)
[2022-09-15] MEDS: GABAPENTIN 300 MG CAP PO SCH ×3 (00:13→20:33)
[2022-09-15] MEDS: OXcarbazepine 300 MG TAB PO SCH ×3 (00:16→20:33)
[2022-09-15 06:54] VITALS: BP 132/84
[2022-09-15] MEDS: OLANZapine ORAL DISINTEGRATING TAB 5MG PO PRN (15:03)
[2022-09-15 18:00] VITALS: BP 143/86
[2022-09-15 20:34] VITALS: BP 143/86
[2022-09-16 06:49] VITALS: BP 138/78
[2022-09-16] MEDS: OXcarbazepine 300 MG TAB PO SCH (08:50)
[2022-09-16] MEDS: guaiFENesin ER 600 MG TAB PO SCH (08:50)
[2022-09-16] MEDS: GABAPENTIN 300 MG CAP PO SCH (08:50)
[2022-09-16] MEDS: DULoxetine 30MG CAPSULE (CYMBALTA) PO SCH (08:50)
[2022-09-16] MEDS: QUEtiapine FUMARATE **XR** 200MG TABLET PO SCH (08:51)
[2022-09-16] MEDS: DICLOFENAC EPOLAMINE 1.3 % PATCH TOP SCH (08:51)
[2022-09-16] MEDS ORDERED: DICLOFENAC EPOLAMINE 1.3 % PATCH TOP ONE (09:30)
[2022-09-16] MEDS ORDERED: OLAN5ZYD PO (12:05)
[2022-09-16] MEDS ORDERED: QUET400T42 PO (12:05)
[2022-09-16] MEDS ORDERED: NICO14PA TD (12:05)
[2022-09-16] MEDS ORDERED: DULO30CA9 PO (12:05)
[2022-09-16] MEDS ORDERED: PRAZ2CAP PO (12:05)
[2022-09-16] MEDS ORDERED: QUET200T79 PO (12:05)
[2022-09-16] MEDS ORDERED: DICL1PAT6 TOP (12:05)
[2022-09-16] MEDS ORDERED: GABA-282 PO (12:05)
[2022-09-16] MEDS ORDERED: OXCA600T8 PO (12:05)
== END 2022-09-16 12:57 | disposition home or self-care (01) | DRG 758 ==
LOC: EDBD 20:13 → M ED 20:13 → M ED INP 09-09 21:43 → M PSY 09-10 02:30
PROVIDERS: ADMIT Student in an Organized Health Care Education/Training Program; ATTEND Student in an Organized Health Care Education/Training Program
DX: F63.9 Impulse disorder, unspecified (principal); Z78.1 Physical restraint status; R45.851 Suicidal ideations; F79 Unspecified intellectual disabilities; F20.9 Schizophrenia, unspecified; Z91.14 Patient's other noncompliance with medication regimen; F17.200 Nicotine dependence, unspecified, uncomplicated; F60.3 Borderline personality disorder; F84.0 Autistic disorder; F12.90 Cannabis use, unspecified, uncomplicated; F10.10 Alcohol abuse, uncomplicated; Z79.899 Other long term (current) drug therapy; Z88.8 Allergy status to other drugs, medicaments and biological substances; J45.909 Unspecified asthma, uncomplicated; M79.7 Fibromyalgia